=== PATIENT | female | born 1995 | race Caucasian/White ===

== ENCOUNTER 2021-11-14 22:03 | Emergency (ER) | payer OTHER, SELFPAY ==
[2021-11-14 22:04] VITALS: BP 130/84; PULSE 81; RESP 16; TEMP 36.9; O2SAT 100; BMI 30.4
--- NOTE | 2021-11-14 22:07 | ECG_ITS ---
APPROVED REPORT Exam: Resting ECG HR:84 bpm ECG Measurements Heart Rate 84 AXES KS 241 P 76 QRSd 120 QRS 112 QT 359 T 76 QTc 401 Conclusion SINUS RHYTHM WITH FIRST DEGREE AV BLOCK RIGHT AXIS DEVIATION [QRS AXIS > 100] RIGHT BUNDLE BRANCH BLOCK [120+ ms QRS DURATION, UPRIGHT V1, 40+ ms S IN I/aVL/V4/V5/V6] SEPTAL MYOCARDIAL INFARCTION , OF INDETERMINATE AGE [40+ ms Q WAVE IN V1/V2] ABNORMAL ECG UNCONFIRMED REPORT Electronically signed by : Tiago Boyd MD 11/16/2021 21:11:06
--- NOTE | 2021-11-14 22:41 | XR_ITS ---
PROCEDURE INFORMATION: Exam: XR Chest Exam date and time: 11/14/2021 11:23 PM Age: 26 years old Clinical indication: Other: Seizure TECHNIQUE: Imaging protocol: Radiologic exam of the chest. Views: 2 views. COMPARISON: No relevant prior studies available. FINDINGS: Lungs: Unremarkable. No consolidation. Pleural spaces: Unremarkable. No pleural effusion. No pneumothorax. Heart/Mediastinum: Unremarkable. No cardiomegaly. Bones/joints: Unremarkable. IMPRESSION: No acute cardiopulmonary abnormality.
--- NOTE | 2021-11-14 22:41 | CT_ITS ---
PROCEDURE INFORMATION: Exam: CT Head Without Contrast Exam date and time: 11/14/2021 11:30 PM Age: 26 years old Clinical indication: Injury or trauma; Fall; Additional info: Poss seizure possible fall TECHNIQUE: Imaging protocol: Computed tomography of the head without contrast. Radiation optimization: All CT scans at this facility use at least one of these dose optimization techniques: automated exposure control; mA and/or kV adjustment per patient size (includes targeted exams where dose is matched to clinical indication); or iterative reconstruction. COMPARISON: No relevant prior studies available. FINDINGS: Brain: Normal. No hemorrhage. Unremarkable white matter. No mass effect. Cerebral ventricles: No ventriculomegaly. Paranasal sinuses: Mild mucosal thickening in the paranasal sinuses. Mastoid air cells: Visualized mastoid air cells are well aerated. Bones/joints: Unremarkable. No acute fracture. Soft tissues: Unremarkable. IMPRESSION: No acute intracranial findings.
--- NOTE | 2021-11-14 22:41 | CT_ITS ---
PROCEDURE INFORMATION: Exam: CT Cervical Spine Without Contrast Exam date and time: 11/14/2021 11:33 PM Age: 26 years old Clinical indication: Injury or trauma; Fall; Additional info: Poss seizure possible fall TECHNIQUE: Imaging protocol: Computed tomography of the cervical spine without contrast. Radiation optimization: All CT scans at this facility use at least one of these dose optimization techniques: automated exposure control; mA and/or kV adjustment per patient size (includes targeted exams where dose is matched to clinical indication); or iterative reconstruction. COMPARISON: CT HEAD/BRAIN WO CON 11/14/2021 11:30 PM FINDINGS: Bones/joints: Straightening and kyphosis of the curvature of the cervical spine is likely positional. Discs/Spinal canal/Neural foramina: No significant disc protrusion. No severe spinal canal stenosis. No significant neural foraminal narrowing. Lungs: Lung apices are normal. Thyroid: There is a 2.3 cm right thyroid nodule. Soft tissues: Unremarkable. IMPRESSION: 1. No acute fracture or malalignment of the cervical spine. 2. There is a 2.3 cm right thyroid nodule. If not previously performed, follow-up ultrasound is recommended. COMMENTS: Consistent with the [employer]'s Incidental Findings Committee white paper (J Am Sandra Radiol 2015): In patients under 35 years old with an incidental thyroid nodule equal to or greater than [address], MRI or extrathyroidal US, further evaluation with dedicated thyroid US is recommended for patients with normal life expectancy and without comorbidities. For smaller nodules without suspicious features, no further evaluation or follow up is recommended.
[2021-11-14 22:48] LABS: Microscopic, Urine URINE MICROSCOPIC (MICROSCOPIC)
[2021-11-14 22:50] LABS: Appearance,Urine SL CLOUDY (Clear); Bilirubin,Urine Negative (Negative); Blood, Urine Negative (Negative); Color,Urine YELLOW (Yellow); Glucose,Urine (UA) Negative (Negative); Ketones,Urine Negative (Negative); Leukocyte Esterase,Urine 1+ (Negative); Nitrate,Urine Negative (Negative); Protein,Urine Negative (Negative); Specific Gravity, Urine >= 1.030 (1.005-1.030); Urobilinogen,Urine 0.2 EU/dl (0.2)
[2021-11-14 22:54] LABS: Urine Pregnancy, HCG Qual. Negative (Negative)
[2021-11-14 22:56] LABS: Alanine Aminotransferase 18 U/L (12-78); Albumin Level 4.5 g/dl (3.5-5.0); Albumin/Globulin Ratio 1.3 (1.1-1.8); Alkaline Phosphatase 82 U/L (38-126); Anion Gap 12.4 mEq/L (5-15); Aspartate Amino Transferase 31 U/L (14-36); Bilirubin,Total 0.5 mg/dl (0.2-1.3); Blood Urea Nitrogen 8 mg/dl (7-17); Calcium 9.5 mg/dl (8.4-10.2); Carbon Dioxide 23 mmol/L (22.0-30.0); Chloride 108 mmol/L (98-107); Creatinine Clearance Estimated 151 mL/min (50-200); Estimated Glomerular Filt Rate 88 ml/min (>60); GFR (African American) 107 ML/MIN (>60); Globulin 3.4 g/dL (1.3-3.2); Glucose 108 mg/dl (74-100); Potassium 3.4 mmoL/L (3.5-5.1); Sodium 140 mmol/L (136-145); Total Protein,Serum 7.9 g/dl (6.3-8.2)
[2021-11-14 22:56] LABS: Bacteria,Urine 2+ /lpf
[2021-11-14 23:00] LABS: Basophils # 0.1 K/mm3 (0-0.2); Basophils % 0.7 % (0.1-2.0); Eosinophils # 0.4 K/mm3 (0.0-0.4); Eosinophils % 4.3 % (0.1-12.0); Hematocrit 42.6 % (37.0-47.0); Lymphocytes # 3.4 K/mm3 (0.7-4.5); Mean Corpuscular HGB Conc 35.2 g/dL (31.8-35.4); Mean Corpuscular Hemoglobin 30.3 pg (27.0-31.2); Monocytes # 0.4 K/mm3 (0.1-1.0); Monocytes % 4.6 % (1.7-9.3); Neutrophils # 5.3 K/mm3 (1.8-7.8); Neutrophils % 55.4 % (37.0-80.0); Platelet Count 236 K/mm3 (142-424); Red Blood Count 4.95 M/mm3 (4.20-5.40); Red Cell Distribution Width 12.6 % (11.5-17.5); White Blood Count 9.6 K/mm3 (4.8-10.8)
[2021-11-14 23:01] LABS: C-Reactive Protein 2.1 mg/L (0-4)
[2021-11-14 23:20] LABS: Procalcitonin < 0.030 ng/mL (0.0-2.0)
[2021-11-14 23:27] LABS: Erythrocyte Sedimentation Rate 14 mm/hr (0-20)
--- NOTE | 2021-11-15 01:40 | HMH.EDSEIZ ---
ED Disposition Clinical Impression: Generalized seizure Disposition: Home, Self-Care Condition on Discharge: Good Instructions: DI for Seizure Disorder -- Adult Additional Instructions: use meds and see pcp for follow up and dr castillo Prescriptions: levETIRAcetam [Keppra 500mg tablet] 500 mg PO BID #60 tab Transmission Status: Pending to [facility] Referrals: Provider,MD Ronel [Primary Care Provider] - Elsie Castillo MD [Staff Physician] - - Critical Care Critical Care Time: No Attestation: On 11/14/21, the high probability of a clinically significant, sudden or life threatening deterioration of the following system(s) required my full and direct attention, intervention and personal management. The time I documented below is in addition to time spent performing reported procedures but includes the following listed in this critical care notation. Medical Decision Making - Medical Records Medical records reviewed: Yes: I reviewed the patient's medical records. - Tarun Inquiry Pt receiving controlled substance: No Vital Signs: 11/14/21 22:04 Temperature 98.5 F Temperature Source Oral Pulse Rate [Left] 81 Respiratory Rate 16 Blood Pressure [Right Arm] 130/84 Blood Pressure Mean [Right Arm] 99 02 Sat by Pulse Oximetry 100 Oxygen Delivery Method Room Air - Lab Data Lab results reviewed: Yes: I reviewed the patient's lab results. Lab Results 11/14/21 22:17: WBC 9.6, RBC 4.95, Hgb 15.0, Hct 42.6, MCV 86.0, MCH 30.3, MCHC 35.2, RDW 12.6, Plt Count 236, MPV 10.0, Neut % (Auto) 55.4, Lymph % (Auto) 35.0, [place] % (Auto) 4.6, Eos % (Auto) 4.3, Baso % (Auto) 0.7, Neut # (Auto) 5.3, Lymph # (Auto) 3.4, [place] # (Auto) 0.4, Eos # (Auto) 0.4, Baso # (Auto) 0.1, ESR 14 11/14/21 22:17: Sodium 140, Potassium 3.4 L, Chloride 108 H, Carbon Dioxide 23, Anion Gap 12.4, BUN 8, Creatinine 0.80, Estimated Creat Clear 151, Estimated GFR 88, Est GFR ( Amer) 107, Glucose 108 H, Calcium 9.5, Total Bilirubin 0.5, AST 31, ALT 18, Alkaline Phosphatase 82, C-Reactive Protein 2.1, Total Protein 7.9, Albumin 4.5, Globulin 3.4 H, Albumin/Globulin Ratio 1.3, Procalcitonin < 0.030 11/14/21 22:22: Urine Color Yellow, Urine Appearance Sl cloudy, Urine pH 6.0, Ur Specific [place] >= 1.030, Urine Protein Negative, Urine Glucose (UA) Negative, Urine Ketones Negative, Urine Blood Negative, Urine Nitrate Negative, Urine Bilirubin Negative, Urine Urobilinogen 0.2, Ur Leukocyte Esterase 1+ A, Urine RBC None, Urine WBC 5-10, Ur Squamous Epith Cells 5-10, Urine Bacteria 2+ 11/14/21 22:22: Urine HCG, Qual Negative Result diagrams: 11/14/21 22:17 11/14/21 22:17 Orders (Tests/Meds): ED MEDICATIONS Generic Name Dose Route Start Last Admin Trade Name Freq PRN Reason Stop Dose Admin Sodium Chloride 1,000 mls @ 999 mls/hr 11/14/21 22:45 11/14/21 22:47 Sod Chlor 0.9% 1000ml Bag IV 11/14/21 23:45 999 mls/hr .Q1H1M CARA Administration Sodium Chloride 10 ml 11/14/21 22:41 Sodium Chloride 0.9% 10ml Vial IV 12/14/21 22:40 NEEDED PRN to Dilute Lorazepam inj Discontinued Medications Generic Name Dose Route Start Last Admin Trade Name Freq PRN Reason Stop Dose Admin Lorazepam 1 mg 11/14/21 22:41 11/14/21 22:47 Lorazepam 2mg/Ml Vial IV 11/14/21 22:42 1 mg ONCE ONE Administration ORDERS Category Date Time Status Rapid PCR Covid and Flu A/B Stat Lab 11/14/21 22:40 Ordered Urine Culture Stat Micro 11/14/21 22:22 Received - Radiology Data #1 Image(s): Chest Image Reviewed: Yes I have reviewed radiologist's interpretation Preliminary Findings: Normal/NAD - CT Data CT Scan: Head, C-Spine Time Received: 01:[address] Reviewed: Yes: I have viewed the radiologist's interpretation Preliminary Findings: Normal/NAD - Reevaluation(s) Time: 01:52 Reevaluation #1: stable Medical Decision Narrative: possible sz and will refer to pcp and neuro and start keppra Seizures HP
[2021-11-15 01:54] VITALS: BP 110/70; PULSE 78; RESP 18; TEMP 36.7; O2SAT 97
[2021-11-15 02:12] LABS: Amphetamine/Metha Screen,Urine Negative ng/ml (<1000); Barbiturates Screen,Urine Negative ng/ml (<200)
[2021-11-15 02:13] LABS: Benzodiazepines Screen,Urine Negative ng/ml (<200)
[2021-11-15 02:14] LABS: Cannabinoid Screen,Urine Negative ng/ml (<50); Cocaine Screen,Urine Negative ng/ml (<300)
[2021-11-15 02:15] LABS: Methadone Screen,Urine Negative ng/ml (<300)
[2021-11-15 02:16] LABS: Opiate Screen,Urine Negative ng/ml (<300); Phencyclidine Screen,Urine Negative ng/ml (<25)
== END 2021-11-15 02:35 | disposition home or self-care (01) ==
PROVIDERS: Emergency Provider Emergency Medicine
DX: I45.10 Unspecified right bundle-branch block (principal); G40.89 Other seizures
CPT/HCPCS: 70450; 71046; 72125; 80053; 80305; 81001; 81025; 84145; 85025; 85651; 86140; 87086; 93005; 96365; 96367; 96375; 99284; J1953

== ENCOUNTER 2022-03-06 18:37 | Emergency (ER) | payer OTHER, SELFPAY ==
[2022-03-06 19:05] VITALS: BP 109/82; PULSE 125; RESP 19; TEMP 37.4; O2SAT 98; BMI 30.7
--- NOTE | 2022-03-06 19:16 | EXP.UTC ---
Discharge Plan Disposition Patient Disposition: Home, Self-Care Condition: Good Prescriptions Prescriptions: New prednisone [prednisone] 20 mg tablet 20 mg PO BID Qty: 10 0RF fluticasone propionate [fluticasone propionate] 50 mcg/actuation spray,suspension 1 spray intranasal DAILY Qty: 9.9 0RF Discontinued pseudoephedrine HCl 120 mg tablet extended release 120 mg PO Q12H PRN (Reason: nasal congestion) Qty: 10 0RF No Action Nexplanon 68 mg implant subdermal amoxicillin 875 mg tablet 875 mg PO BID 7 Days Qty: 14 0RF levetiracetam 500 MG tablet 500 mg PO BID Qty: 60 0RF Referrals Follow up/Referrals: Provider,Referral, MD [Primary Care Provider] - See instructions Activity Restrictions/Add. Instructions Additional Instructions/Restrictions: No sign of a bacterial infection. Likely viral. Viruses can take 7-14 days to run their course. Nasal saline and bulb syringe or nose Lolis to remove nasal drainage to help with nasal congestion. Hard to eat, drink, sleep with nasal congestion so important to keep this cleaned out. Monitor temp. Tylenol or Motrin as needed for pain or fever Encourage fluids, water, Gatorade, Powerade, Pedialyte if infant/toddler/child Warm salt water gargles Warm fluids Sore throat lozenges Sleep elevated Humidifier/vaporizer Follow-up immediately for new or worsening symptoms or no noticeable improvement over the next 48-72 hours. Clinical Impressions Clinical Impression: Upper respiratory infection Instructions Patient Instructions: DI for Viral Upper Respiratory Infection -- Adult Discharge ED Provider: Samy ([facility])Tracie [facility] HPI General Stated complaint: weak, chills, ear ache Mode of Arrival: Ambulatory Source of Information: Patient Limitations: No Limitations Time Seen by Provider: 03/06/22 19:16 HEENT Symptoms (Recalled from RN notes): Yes Resp Symptoms (Recalled from RN notes): Yes History of Present Illness Provider Complaint: 26 yr old female presents for clear congestion, ear pain, sore throat and thirsty. pt states she was seen on monday and placed on antibiotics and sudefed and does not feel any better Related Data Home Medications Medication Instructions Recorded Confirmed etonogestrel 68 mg subdermal subdermal 03/01/22 03/01/22 implant (Nexplanon) Previous Rx's Medication Instructions Recorded levetiracetam 500 mg tablet 500 mg PO BID #60 tabs 11/15/21 amoxicillin 875 mg tablet 875 mg PO BID 7 days #14 tabs 03/01/22 fluticasone propionate 50 1 spray intranasal DAILY #9.9 mL 03/06/22 mcg/actuation nasal spray,suspension prednisone 20 mg tablet 20 mg PO BID #10 tabs 03/06/22 Allergies Allergy/AdvReac Type Severity Reaction Status Date / Time No Known Allergies Allergy Verified 03/01/22 13:50 [facility] Medical History (Updated 03/06/22 @ 19:21 by Tracie Pablo ([facility]), DEPUTY CORONER) Seizure Surgical History , DEPUTY CORONER) History of endometrial ablation Family History , DEPUTY CORONER) Diabetes Grandmother Coronary artery disease Father Hypertension Father Social History , DEPUTY CORONER) Smoking Status: Current every day smoker alcohol intake: never substance use type: denies use current occupational status: unemployed Travel in the last 8 weeks: None household members: children housing: apartment ROS Obtained: Yes All systems reviewed & no additional complaints except as documented Constitutional Constitutional: Reports system reviewed and no additional complaints, except as documented, Reports as per HPI, Reports body ache and Reports fever(s) Eyes Eyes: Reports system reviewed and no additional complaints, except as documented and Reports as per HPI ENT Ears, Nose, Mouth, and Throat: Reports system reviewed and no additional complaints, e
[2022-03-06 19:51] VITALS: BP 109/82; PULSE 125; RESP 19; TEMP 37.4; O2SAT 98
== END 2022-03-06 19:54 | disposition home or self-care (01) ==
PROVIDERS: Emergency Provider Nurse Practitioner Family
DX: J06.9 Acute upper respiratory infection, unspecified (principal)
CPT/HCPCS: 99212; G0463

== ENCOUNTER 2022-08-16 19:16 | Emergency (ER) | payer OTHER, SELFPAY ==
[2022-08-16] VITALS (7 sets, daily range): BP systolic 96–140; BP diastolic 49–84; PULSE 66–98; RESP 12–21; TEMP 36.8–37.1; O2SAT 99–100; BMI 34.4
--- NOTE | 2022-08-16 19:18 | ECG_ITS ---
APPROVED REPORT Exam: Resting ECG HR:78 bpm ECG Measurements Heart Rate 78 AXES SC 193 P -55 QRSd 118 QRS 104 QT 363 T 62 QTc 397 Conclusion ECTOPIC ATRIAL RHYTHM RIGHT AXIS DEVIATION [QRS AXIS > 100] INCOMPLETE RIGHT BUNDLE BRANCH BLOCK [90+ ms QRS DURATION, TERMINAL R IN V1/V2, 40+ ms S IN I/aVL/V4/V5/V6] SEPTAL MYOCARDIAL INFARCTION , OF INDETERMINATE AGE [40+ ms Q WAVE IN V1/V2] ABNORMAL ECG UNCONFIRMED REPORT Electronically signed by : Tiago Boyd MD 08/17/2022 20:29:25
--- NOTE | 2022-08-16 19:25 | CT_ITS ---
PROCEDURE INFORMATION: Exam: CT Head Without Contrast Exam date and time: 08/16/2022 8:56 PM Age: 26 years old Clinical indication: Syncope and collapse TECHNIQUE: Imaging protocol: Computed tomography of the head without contrast. Radiation optimization: All CT scans at this facility use at least one of these dose optimization techniques: automated exposure control; mA and/or kV adjustment per patient size (includes targeted exams where dose is matched to clinical indication); or iterative reconstruction. REPORTING DATA: Count of CT and Cardiac NM exams in prior 12 months: This patient has received 2 known CTs and 0 known cardiac nuclear medicine studies in the 12 months prior to the current study. COMPARISON: CT HEAD/BRAIN WO CON 11/14/2021 11:30 PM FINDINGS: Brain: No evidence for acute transcortical infarct. No mass effect or midline shift. No extra-axial collection. No acute intracranial hemorrhage. Basal cisterns are patent. Cerebral ventricles: No ventriculomegaly. Paranasal sinuses: Visualized sinuses are unremarkable. No fluid levels. Mastoid air cells: Visualized mastoid air cells are well aerated. Bones/joints: Unremarkable. No acute fracture. Soft tissues: Unremarkable. IMPRESSION: No evidence for acute transcortical infarct, acute intracranial hemorrhage, or mass effect.
--- NOTE | 2022-08-16 19:25 | XR_ITS ---
PROCEDURE INFORMATION: Exam: XR Chest Exam date and time: 08/16/2022 8:50 PM Age: 26 years old Clinical indication: Syncope TECHNIQUE: Imaging protocol: Radiologic exam of the chest. Views: 2 views. COMPARISON: CR XR CHEST 2V 11/14/2021 11:23 PM FINDINGS: Lungs: Clear lungs. Pleural spaces: No pneumothorax. No sizable pleural effusion. Heart/Mediastinum: No cardiomegaly. Bones/joints: Unremarkable. IMPRESSION: Clear lungs.
[2022-08-16 19:42] LABS: Basophils # 0.1 K/mm3 (0-0.2); Basophils % 0.9 % (0.1-2.0); Eosinophils # 0.5 K/mm3 (0.0-0.4); Eosinophils % 5.2 % (0.1-12.0); Hematocrit 45.2 % (37.0-47.0); Hemoglobin 15.2 g/dL (12.2-16.2); Lymphocytes # 3.7 K/mm3 (0.7-4.5); Lymphocytes % 39.7 % (10-50); Mean Corpuscular HGB Conc 33.7 g/dL (31.8-35.4); Mean Corpuscular Hemoglobin 30.4 pg (27.0-31.2); Mean Platelet Volume 9.6 fl (7.4-10.4); Monocytes # 0.5 K/mm3 (0.1-1.0); Monocytes % 5.7 % (1.7-9.3); Neutrophils # 4.5 K/mm3 (1.8-7.8); Neutrophils % 48.4 % (37.0-80.0); Platelet Count 258 K/mm3 (142-424); Red Blood Count 5.02 M/mm3 (4.20-5.40); Red Cell Distribution Width 13.3 % (11.5-17.5); White Blood Count 9.4 K/mm3 (4.8-10.8)
[2022-08-16 19:43] LABS: Chloride 106 mmol/L (98-107); Potassium 3.8 mmoL/L (3.5-5.1); Sodium 140 mmol/L (136-145)
[2022-08-16 19:46] LABS: Alanine Aminotransferase 24 U/L (12-78); Albumin Level 4.7 g/dl (3.5-5.0); Albumin/Globulin Ratio 1.2 (1.1-1.8); Alkaline Phosphatase 74 U/L (38-126); Amylase 108 U/L (30-110); Anion Gap 13.8 mEq/L (5-15); Aspartate Amino Transferase 31 U/L (14-36); Bilirubin,Total 0.5 mg/dl (0.2-1.3); Blood Urea Nitrogen 14 mg/dl (7-17); Calcium 9.4 mg/dl (8.4-10.2); Carbon Dioxide 24 mmol/L (22.0-30.0); Creatinine Clearance Estimated 152 mL/min (50-200); Estimated Glomerular Filt Rate 77 ml/min (>60); GFR (African American) 93 ML/MIN (>60); Globulin 3.8 g/dL (1.3-3.2); Glucose 97 mg/dl (74-100); Lipase 112 U/L (23-300); Total Protein,Serum 8.5 g/dl (6.3-8.2)
[2022-08-16 20:10] LABS: T4 (Thyroxine) 8.5 ug/dl (5.53-11.0)
[2022-08-16 20:12] LABS: Troponin I < 0.01 ng/ml (0.00-0.034)
[2022-08-16 20:23] LABS: Thyroid Stimulating Hormone 0.25 uIU/mL (0.465-4.68)
[2022-08-16 20:27] LABS: HCG Qualitative, Serum Negative (Negative)
--- NOTE | 2022-08-16 20:53 | HMH.EDSYNC ---
Discharge Plan Disposition Patient Disposition: Home, Self-Care Chief Complaint: Syncope Prescriptions Prescriptions: No Action Nexplanon 68 mg implant 1 implant subdermal ONCE levetiracetam 500 MG tablet 500 mg PO BID Rx Instructions: takes prn when she feels a headache coming on Referrals Follow up/Referrals: Provider,Referral, MD [Primary Care Provider] - See instructions Clinical Impressions Clinical Impression: Vasovagal syncope, Gastroenteritis Instructions Patient Instructions: DI for Syncope in Adults (Fainting) Discharge ED Provider: Isra (ED),Rolando Antoine Syncope HPI General Chief Complaint: Syncope Stated Complaint: syncopal Time Seen by Provider: 08/16/22 20:53 Mode of Arrival: EMS Source of Information: Patient, EMS and Medical Record Limitations: No Limitations Description of Symptoms (Recalled from ER Triage Doc. by RN): 26 F presents via EMS from work c/o nausea, vomiting, diarrhea, and syncope. Patient reports she was not feeling well before she went to work; however, it became worse when she felt light headed and almost passed out. Patient has 20g to LAC per EMS History of Present Illness HPI narrative: pt with reported vomiting and diarrhea which started today - pt reports child has similiar illness- no fever - went to work and became lightheaded and had near syncopal episode - no sz activity reported MD complaint: almost passed out Onset (ago): hour(s) Prodromal symptoms: lightheaded Witnessed: no Context: recent illness Injuries sustained associated with event: none Current symptoms: back to baseline History: seizure disorder Treatments prior to arrival: none Related Data Home Medications Medication Instructions Recorded Confirmed etonogestrel 68 mg subdermal 1 implant subdermal ONCE nexplanon 03/01/22 08/16/22 implant (Nexplanon) levetiracetam 500 mg tablet 500 mg PO BID Headache 08/16/22 08/16/22 Allergies Allergy/AdvReac Type Severity Reaction Status Date / Time No Known Allergies Allergy Verified 03/01/22 13:50 [facility] Disclaimer: The information contained in this section may have been updated after the patient was seen, as this information can be updated by other users. Medical History (Updated 08/16/22 @ 21:36 by Rolando Dhaliwal (ED)MD) Seizure Surgical History History of endometrial ablation Family History , [employer]) Diabetes Grandmother Coronary artery disease Father Hypertension Father Social History (Updated 03/06/22 @ 19:22 by Pam Morrissey RN) Smoking Status: Current every day smoker alcohol intake: never substance use type: denies use current occupational status: unemployed Travel in the last 8 weeks: None household members: children housing: apartment ROS Obtained: Yes All systems reviewed & no additional complaints except as documented Physical Exam General General appearance: alert Head Head exam: normocephalic Eye Eye exam: Present PERRL and EOMI; Absent scleral icterus or nystagmus ENT ENT exam: Present mucous membranes moist and other (no evid of tongue biting ) Neck Neck exam: Present full ROM Respiratory Respiratory exam: Present normal lung sounds bilaterally; Absent respiratory distress Cardiovascular Cardiovascular exam: Present regular rate Abdominal Exam Abdominal exam: Present soft; Absent tenderness Extremities Exam Extremities exam: Present full ROM Neurological Exam Neurological exam: Present alert, oriented X3 and CN II-XII intact; Absent motor sensory deficit Psychiatric Psychiatric exam: Present normal affect Skin Skin exam: Absent rash Medical Decision Making Medical Records Medical records reviewed: Yes I reviewed the patient's medical records. Tarun Inquiry Pt receiving controlled substance: No Vital Signs: 08/16/22 19:16 08/16/22 1
== END 2022-08-16 21:54 | disposition home or self-care (01) ==
PROVIDERS: Emergency Provider Emergency Medicine
DX: R55 Syncope and collapse (principal); K52.9 Noninfective gastroenteritis and colitis, unspecified; F17.200 Nicotine dependence, unspecified, uncomplicated
CPT/HCPCS: 70450; 71046; 80053; 82150; 83690; 84436; 84443; 84484; 84703; 85025; 93005; 96361; 96374; 99285; J2405

== ENCOUNTER → 2022-09-14 10:45 | Outpatient (CLI) | payer OTHER, SELFPAY ==
[2022-09-14 13:24] LABS: Basophils % 0.6 % (0.1-2.0); Eosinophils # 0.5 K/mm3 (0.0-0.4); Hematocrit 43.6 % (37.0-47.0); Hemoglobin 14.5 g/dL (12.2-16.2); Lymphocytes # 2.8 K/mm3 (0.7-4.5); Lymphocytes % 38.7 % (10-50); Mean Corpuscular HGB Conc 33.1 g/dL (31.8-35.4); Mean Corpuscular Volume 90.5 fl (81-99); Monocytes # 0.3 K/mm3 (0.1-1.0); Monocytes % 4.3 % (1.7-9.3); Neutrophils # 3.6 K/mm3 (1.8-7.8); Neutrophils % 49.5 % (37.0-80.0); Platelet Count 223 K/mm3 (142-424); Red Blood Count 4.82 M/mm3 (4.20-5.40); White Blood Count 7.2 K/mm3 (4.8-10.8)
[2022-09-14 13:46] LABS: Alanine Aminotransferase 34 U/L (12-78); Albumin Level 4.2 g/dl (3.5-5.0); Albumin/Globulin Ratio 1.4 (1.1-1.8); Alkaline Phosphatase 79 U/L (38-126); Anion Gap 17.8 mEq/L (5-15); Aspartate Amino Transferase 37 U/L (14-36); Bilirubin,Total 0.6 mg/dl (0.2-1.3); Blood Urea Nitrogen 11 mg/dl (7-17); Calcium 9.2 mg/dl (8.4-10.2); Carbon Dioxide 23 mmol/L (22.0-30.0); Chloride 103 mmol/L (98-107); Estimated Glomerular Filt Rate 122 ml/min (>60); GFR (African American) 147 ML/MIN (>60); Glucose 93 mg/dl (74-100); Potassium 3.8 mmoL/L (3.5-5.1); Sodium 140 mmol/L (136-145); Total Protein,Serum 7.2 g/dl (6.3-8.2)
[2022-09-14 14:01] LABS: Triiodothryronine (T3) Uptake 33 % (23.5-40.5)
[2022-09-14 14:16] LABS: Thyroid Stimulating Hormone 0.19 uIU/mL (0.465-4.68)
[2022-09-14 19:15] LABS: Free Thyroxine Index 2.1 ug/dL (5.93-13.13); T4 (Thyroxine) 6.5 ug/dl (5.53-11.0)
== END ==
PROVIDERS: PCP Nurse Practitioner Family; Visit Provider Nurse Practitioner Family
DX: R53.83 Other fatigue (principal)
CPT/HCPCS: 80053; 83036; 84436; 84443; 84479; 85025

== ENCOUNTER → 2022-09-22 15:27 | Outpatient (CLI) | payer OTHER, SELFPAY ==
--- NOTE | 2022-09-22 15:30 | XR_ITS ---
FINAL REPORT CLINICAL HISTORY: Foot Pain COMPARISON: None FINDINGS: LEFT FOOT Three views of the left foot demonstrate no acute fracture or dislocation. The visualized joint spaces are normally aligned. The soft tissues are unremarkable. IMPRESSION: No acute bony abnormality. Reviewed, Interpreted and Dictated by Bryson Hermosillo MD Transcribed by Sonali Ly Authenticated and [facility]
== END ==
PROVIDERS: PCP Nurse Practitioner Family; Visit Provider Nurse Practitioner Family
DX: M79.672 Pain in left foot (principal)
CPT/HCPCS: 73630

== ENCOUNTER → 2022-09-27 09:24 | Outpatient (CLI) | payer OTHER, SELFPAY ==
[2022-09-27 10:41] LABS: Free T4 (Free Thyroxine) 0.91 ng/dl (0.78-2.19)
[2022-09-28 17:41] LABS: Thyroid Peroxidase Antibodies <9 IU/mL (0-34)
[2022-09-30 07:39] LABS: Thyroid Stimulating Immunoglob <0.10 IU/L (0.00-0.55)
== END ==
PROVIDERS: PCP Nurse Practitioner Family; Visit Provider Nurse Practitioner
DX: E05.90 Thyrotoxicosis, unspecified without thyrotoxic crisis or storm (principal)
CPT/HCPCS: 36415; 84439; 84443; 84445; 86376

== ENCOUNTER → 2022-10-12 10:24 | Outpatient (CLI) | payer OTHER, SELFPAY ==
--- NOTE | 2022-10-12 10:27 | US_ITS ---
FINAL REPORT CLINICAL HISTORY: hyperthyroidism FINDINGS: Thyroid ultrasound: The right lobe of the thyroid measures 6 x 1.6 x 2.6 cm in size. There is a dominant nodule, hypoechoic, and solid, in the lower pole of the right lobe of the thyroid gland measuring 1.9 x 1.8 cm in size. This lesion is classified as a TI-RADS 4 class lesion. Several other subcentimeter nodules are present. The left lobe of the thyroid gland measures 5.7 x 1.3 x 1.8 cm in size. There are several small subcentimeter nodules present, hypoechoic and solid. The isthmus of the thyroid gland measures 0.3 cm in thickness. There is a 1.2 cm ovoid nodule in the right side of the isthmus, which is a TI-RADS 4 category nodule. IMPRESSION: Dominant right lower pole nodule, 1.9 x 1.8 cm in size, classified as a TI-RADS 4 category nodule. Would recommend biopsy of this nodule. 1.2 cm ovoid nodule in the right isthmus, also classified as a TI-RADS 4 nodule. Would recommend 1 year follow-up ultrasound for further evaluation. Several other small bilateral nodules, all less than a cm in size are present bilaterally. Mild thyromegaly. Reviewed, Interpreted and Dictated by Bryson Hermosillo MD Transcribed by Sonali Ly Authenticated and [facility]
== END ==
PROVIDERS: PCP Nurse Practitioner Family; Visit Provider Nurse Practitioner
DX: E05.90 Thyrotoxicosis, unspecified without thyrotoxic crisis or storm (principal)
CPT/HCPCS: 76536

== ENCOUNTER → 2022-10-19 09:05 | Outpatient (CLI) | payer OTHER, SELFPAY ==
--- NOTE | 2022-10-19 09:09 | US_ITS ---
FINAL REPORT CLINICAL HISTORY: right lobe thyroid FNA FINDINGS: Ultrasound guided thyroid biopsy. HISTORY: Thyroid mass. PROCEDURE: After informed consent was obtained and a time-out was performed, the patient was prepped and draped in usual sterile fashion over the anterior neck. Utilizing local anesthesia and sterile technique with a 25-gauge needle, access to the lesion was obtained. Four passes were made. The patient received no conscious sedation. The patient tolerated procedure well and left the department in good condition. IMPRESSION: Status post ultrasound guided biopsy of a thyroid nodule without immediate complication. Films reviewed , interpreted and dictated by Dr. Carlson Transcribed by Jm Elizalde PA-C. Reviewed, Interpreted and Dictated by Chu Carlson III, MD Transcribed by RUBY Tafoya Authenticated and [facility]
== END ==
PROVIDERS: PCP Physician Assistant; Visit Provider Nurse Practitioner
DX: E04.1 Nontoxic single thyroid nodule (principal)
CPT/HCPCS: 10005; 76536

== ENCOUNTER 2022-11-04 08:28 | Emergency (ER) | payer OTHER, SELFPAY ==
[2022-11-04 08:29] VITALS: BP 126/72; RESP 17; TEMP 37.1; O2SAT 98; BMI 33.8
--- NOTE | 2022-11-04 08:48 | PC.NURSE ---
Dr. Ryan at [facility]
--- NOTE | 2022-11-04 08:51 | XR_ITS ---
FINAL REPORT CLINICAL HISTORY: toe injury, dropped drawer on toes, c/o pain with bruising and laceration to 1st and 2nd toes FINDINGS: Right toes Four views were obtained. There is no acute fracture or dislocation. The joint spaces appear normal. No soft tissue abnormality is identified. IMPRESSION: No acute process. Reviewed, Interpreted and Dictated by Chu Carlson III, MD Transcribed by Palak Boswell Authenticated and [facility]
[2022-11-04 09:06] VITALS: BP 121/62; PULSE 77; O2SAT 97
--- NOTE | 2022-11-04 09:52 | HMH.EDGENADL ---
Discharge Plan Disposition Patient Disposition: Home, Self-Care Chief Complaint: Extremity Injury, Lower Prescriptions Prescriptions: No Action meloxicam 7.5 mg tablet 7.5 mg PO DAILY 30 Days Qty: 30 2RF Nexplanon 68 mg implant 1 implant subdermal ONCE phentermine [Adipex-P] 37.5 mg tablet 37.5 mg PO DAILY Qty: 30 0RF Rx Instructions: must administer 30 minutes before or 1-2 hours after breakfast levetiracetam 500 mg tablet 500 mg PO .PRN Rx Instructions: takes prn when she feels a headache coming on Referrals Follow up/Referrals: Destinee Diaz PA [Primary Care Provider] - See instructions Activity Restrictions/Add. Instructions Additional Instructions/Restrictions: Follow-up with your primary care physician within the next few days. Return the emergency department within the next 8 hours should you have worsening pain rebleeding or any other concerns Clinical Impressions Clinical Impression: Injury of toe Discharge ED Provider: Jose Juan Ryan General Adult HPI General Chief complaint: Extremity Injury, Lower Stated complaint: AO@Home 11/04 RT toe pain lac Time Seen by Provider: 11/04/22 08:30 Mode of Arrival: Ambulatory Source of Information: Patient Limitations: No Limitations Description of Symptoms (Recalled from ER Triage Doc. by RN): pt to the ED after dropping a dresser drawer on her right foot this morning. pt has small laceration to right big toe and a crush injury to second toe. History of Present Illness HPI narrative: 27-year-old female presents after dropping a dresser drawer on her right foot this morning. She has a small laceration to her great toe and second toe. No active bleeding. Tetanus is not up-to-date within the last 10 years. She is able to bear weight no midfoot tenderness. No other injuries no head injury or any other concerns Related Data Home Medications Medication Instructions Recorded Confirmed etonogestrel 68 mg subdermal 1 implant subdermal ONCE nexplanon 03/01/22 10/27/22 implant (Nexplanon) levetiracetam 500 mg tablet 500 mg PO .PRN Headache 10/27/22 10/27/22 Previous Rx's Medication Instructions Recorded meloxicam 7.5 mg tablet 7.5 mg PO DAILY left foot pain 30 09/22/22 days #30 tabs phentermine 37.5 mg tablet 37.5 mg PO DAILY #30 tabs 10/14/22 (Adipex-P) Allergies Allergy/AdvReac Type Severity Reaction Status Date / Time No Known Allergies Allergy Verified 10/27/22 09:54 [facility] Disclaimer: The information contained in this section may have been updated after the patient was seen, as this information can be updated by other users. Medical History (Updated 11/04/22 @ 09:56 by Jose Juan Ryan MD) Deviated septum Hyperthyroidism Seizure Thyroid Nodule Surgical History History of endometrial ablation Family History Grandmother Diabetes Father Coronary artery disease Hypertension Other Thyroid disorder Social History Smoking Status: Never smoker alcohol intake: never substance use type: denies use current occupational status: employed Travel in the last 8 weeks: None household members: children housing: apartment ROS Obtained: Yes All systems reviewed & no additional complaints except as documented Constitutional Constitutional: Denies fever(s) and Denies headache(s) Eyes Eyes: Denies dry eyes ENT Ears, Nose, Mouth, and Throat: Denies headache(s) Cardiovascular Cardiovascular: Denies diaphoresis and Denies dyspnea Respiratory Respiratory: Denies dyspnea and Denies wheezing Gastrointestinal Gastrointestingal: Denies coffee ground emesis Genitourinary Female Genitourinary: Denies dysuria Musculoskeletal Musculoskeletal: Denies arthralgias Integumentary/Breasts Skin/Breast: Denies rash Neurologi
[2022-11-04 10:22] VITALS: BP 129/87; PULSE 74; RESP 16; TEMP 36.7; O2SAT 98
== END 2022-11-04 10:25 | disposition home or self-care (01) ==
PROVIDERS: Emergency Provider Emergency Medicine; PCP Physician Assistant
DX: S91.111A Laceration without foreign body of right great toe without damage to nail, initial encounter (principal); S97.121A Crushing injury of right lesser toe(s), initial encounter; E05.90 Thyrotoxicosis, unspecified without thyrotoxic crisis or storm; W20.8XXA Other cause of strike by thrown, projected or falling object, initial encounter; Z23 Encounter for immunization
CPT/HCPCS: 12001; 73660; 90715; 96372; 99283; 99284

== ENCOUNTER 2023-04-28 13:03 | Outpatient (CLI) | payer OTHER, SELFPAY ==
--- NOTE | 2023-04-28 13:03 | US_ITS ---
FINAL REPORT TECHNIQUE: Real-time grayscale and color ultrasound of the thyroid was performed. CLINICAL HISTORY: Thyroid nodules COMPARISON: 10/12/2022 FINDINGS: The thyroid gland measures 55 mm on the right and 57 mm on the left. The isthmus measures 3 mm. Nodules: Right isthmus TR 4 nodule measures 12 x 11 x 5 mm, was 12 x 11 x 5 mm, mostly solid hypoechoic. Right lower pole 22 x 20 x 19 mm, was 19 x 18 x 21 mm, mostly solid hypoechoic punctate echogenic foci TR 5 nodule. Several other less than 1 cm nodules are stable. IMPRESSION: Right lower pole TR 5 nodule. Recommend biopsy if not already performed. Reviewed, Interpreted and Dictated by Chu Carlson III, MD Transcribed by Flaquita Moore Authenticated and [facility]
== END 2023-04-28 23:59 ==
LOC: RAD 13:03
PROVIDERS: PCP Physician Assistant; Visit Provider Nurse Practitioner
DX: E04.1 Nontoxic single thyroid nodule (principal)
CPT/HCPCS: 76536

== ENCOUNTER 2023-05-12 08:17 | Outpatient (CLI) | payer OTHER, SELFPAY ==
--- NOTE | 2023-05-12 08:20 | US_ITS ---
FINAL REPORT CLINICAL HISTORY: .fna rt throid-- thyroseq used-- antoine olson FINDINGS: Ultrasound guided thyroid biopsy. HISTORY: Thyroid mass. Patient has had previous biopsy which yielded negative results. Review of imaging from that biopsy demonstrated the needle in excellent position within the mass. PROCEDURE: After informed consent was obtained and a time-out was performed, the patient was prepped and draped in usual sterile fashion over the anterior neck. Utilizing local anesthesia and sterile technique with a 25-gauge needle, access to the lesion was obtained. Four passes were made. . Samples were also obtained and sent to the laboratory in [facility]. The patient received no conscious sedation. The patient tolerated procedure well and left the department in good condition. IMPRESSION: Status post ultrasound guided biopsy of a thyroid nodule without immediate complication. Films reviewed , interpreted and dictated by Dr. Carlson Transcribed by Antoine Elizalde PA-C. Reviewed, Interpreted and Dictated by Chu Carlson III, MD Transcribed by RUBY Tafoya Authenticated and [facility]
== END 2023-05-12 23:59 ==
LOC: RAD 08:18
PROVIDERS: PCP Physician Assistant; Visit Provider Nurse Practitioner
DX: E04.1 Nontoxic single thyroid nodule (principal)
CPT/HCPCS: 10005; 76536

== ENCOUNTER 2023-05-15 13:42 | Outpatient (CLI) | payer OTHER, SELFPAY ==
[2023-05-15 21:35] LABS: Free T4 (Free Thyroxine) 0.86 ng/dl (0.78-2.19)
[2023-05-15 21:49] LABS: Thyroid Stimulating Hormone 0.37 uIU/mL (0.465-4.68)
[2023-05-16 09:24] LABS: Triiodothyronine (T3) Free 3.5 pg/mL (2.0-4.4)
== END 2023-05-15 23:59 ==
LOC: LAB 13:43
PROVIDERS: PCP Physician Assistant; Visit Provider Nurse Practitioner
DX: E04.1 Nontoxic single thyroid nodule (principal); E05.90 Thyrotoxicosis, unspecified without thyrotoxic crisis or storm
CPT/HCPCS: 36415; 84439; 84443; 84481

== ENCOUNTER 2023-06-14 13:08 | Outpatient (CLI) | payer OTHER, SELFPAY ==
--- NOTE | 2023-06-14 13:19 | ECG_ITS ---
APPROVED REPORT Exam: Resting ECG HR:82 bpm ECG Measurements Heart Rate 82 AXES GA 198 P -2 QRSd 115 QRS 123 QT 349 T 69 QTc 387 Conclusion SINUS RHYTHM RIGHT AXIS DEVIATION [QRS AXIS > 100] RIGHT BUNDLE BRANCH BLOCK [120+ ms QRS DURATION, UPRIGHT V1, 40+ ms S IN I/aVL/V4/V5/V6] ABNORMAL ECG UNCONFIRMED REPORT Electronically signed by : Tiago Boyd MD 06/14/2023 20:34:43
[2023-06-14 13:53] LABS: Basophils # 0.1 K/mm3 (0-0.2); Basophils % 0.8 % (0.1-2.0); Eosinophils # 0.5 K/mm3 (0.0-0.4); Eosinophils % 6.3 % (0.1-12.0); Hematocrit 41.4 % (37.0-47.0); Hemoglobin 13.5 g/dL (12.2-16.2); Lymphocytes # 2.8 K/mm3 (0.7-4.5); Lymphocytes % 36.1 % (10-50); Mean Corpuscular HGB Conc 32.7 g/dL (31.8-35.4); Mean Corpuscular Hemoglobin 31.7 pg (27.0-31.2); Mean Corpuscular Volume 97.1 fl (81-99); Mean Platelet Volume 9.6 fl (7.4-10.4); Monocytes # 0.4 K/mm3 (0.1-1.0); Monocytes % 4.7 % (1.7-9.3); Neutrophils # 4.1 K/mm3 (1.8-7.8); Neutrophils % 52.1 % (37.0-80.0); Platelet Count 207 K/mm3 (142-424); Red Blood Count 4.26 M/mm3 (4.20-5.40); Red Cell Distribution Width 12.7 % (11.5-17.5); White Blood Count 7.8 K/mm3 (4.8-10.8)
[2023-06-14 14:11] LABS: Alanine Aminotransferase 18 U/L (12-78); Albumin/Globulin Ratio 1.4 (1.1-1.8); Alkaline Phosphatase 69 U/L (38-126); Aspartate Amino Transferase 22 U/L (14-36); Bilirubin,Total 0.4 mg/dl (0.2-1.3); Blood Urea Nitrogen 13 mg/dl (7-17); Calcium 9.2 mg/dl (8.4-10.2); Carbon Dioxide 28 mmol/L (22.0-30.0); Chloride 107 mmol/L (98-107); Estimated Glomerular Filt Rate 76 ml/min (>60); GFR (African American) 92 ML/MIN (>60); Globulin 2.8 g/dL (1.3-3.2); Glucose 87 mg/dl (74-100); Sodium 140 mmol/L (136-145); Total Protein,Serum 6.8 g/dl (6.3-8.2)
[2023-06-14 16:24] LABS: HCG Qualitative, Serum Negative (Negative)
== END 2023-06-14 23:59 ==
LOC: RT 13:09
PROVIDERS: PCP Physician Assistant; Visit Provider Nurse Practitioner
DX: E01.0 Iodine-deficiency related diffuse (endemic) goiter (principal)
CPT/HCPCS: 36415; 80053; 84703; 85025; 93005

== ENCOUNTER 2023-06-21 08:16 | Day surgery (SDC) | payer OTHER, SELFPAY ==
[2023-06-20 12:15] VITALS: BMI 32.4
[2023-06-21] VITALS (11 sets, daily range): BP systolic 104–123; BP diastolic 52–73; PULSE 70–86; RESP 14–16; TEMP 36.3–36.4; O2SAT 96–100
[2023-06-21] MEDS: LACTATED RINGERS 1000ML 1,000 ML 25 ML IV (09:27)
[2023-06-21] MEDS: CEFAZOLIN SODIUM 2 GM in 0.9 % SODIUM CHLORIDE 100 ML IV (10:50)
[2023-06-21] MEDS: LIDOCAINE 1% W/EPI 1:100,000 20ML VIAL 20 ML (10:50)
[2023-06-21] MEDS: BACITRACIN ZINC OINT 30GM TUBE 28 GM TP (12:38)
--- NOTE | 2023-06-21 12:51 | P.OP_ITS ---
Date of procedure: 06/21/23 Pre-op Diagnosis:: Right thyroid nodule Post-op Diagnosis:: Right thyroid nodule Procedure performed:: Right thyroid lobectomy and isthmusectomy with intraoperative continuous monitoring of the recurrent laryngeal nerve Surgeon:: See Armendariz MD SHARED SERVICES AND OUTSOURCING MANAGER:: Nico Patel Anesthesia: GETPatricia Estimated blood loss (mL): 20 Operative findings:: Firm nodule of the inferior pole on the right side. Smaller nodule on the isthmus. Recurrent laryngeal nerve was identified and preserved in its usual location. Superior and inferior parathyroid glands identified and preserved Operative note:: The patient was brought to the operating room and after adequate general anesthesia the neck was prepped and draped in the usual sterile fashion and 1% lidocaine with epinephrine used to locally infiltrate a skin fold overlying the palpable thyroid. Nerve integrity monitoring electrodes were then placed to monitor the recurrent laryngeal nerve. An incision was then made and carried through the underlying platysma and then subplatysmal flaps were elevated superiorly and inferiorly and the strap muscles were divided at midline and retracted laterally and then self-retaining retractor applied. The thyroid isthmus was then elevated from the anterior tracheal wall and then ligated and divided with the harmonic scalpel. The anterior suspensory ligament was isolated ligated and divided again with harmonic scalpel. Attention was then drawn to the right thyroid lobe. Dissection was performed along its capsule. There was some mild inflammation causing adherence of the surrounding soft tissues to the capsule but dissection proceeded without difficulty. The middle thyroid vein was identified ligated and divided with the harmonic scalpel and then attention drawn to the superior pole. The superior pole vascular pedicle was isolated next to the gland capsule ligated and divided with harmonic scalpel and then dissection performed inferiorly. Small vascular perforators at the inferior pole were individually isolated ligated and divided with harmonic scalpel and then dissection performed along the capsule of the thyroid lobe dissecting the thyroid lobe from the tracheoesophageal groove. The recurrent laryngeal nerve was identified in its usual location and identity was confirmed with nerve stimulation. The lateral surface of the nerve was from the thyroid lobe and the inferior and superior parathyroid glands identified and preserved along with the vascular pedicle to each of the parathyroids. The posterior suspensory ligament was then divided and the specimen sent for permanent section analysis. The wound was irrigated with normal saline and final hemostasis established with bipolar cautery. Closure was then performed with 4-0 Vicryl to reapproximate the strap muscles and platysma and then 5-0 nylon to reapproximate the skin edges. A sterile dressing was placed and the procedure concluded. All counts correct and blood loss minimal and patient was sent to recovery in stable condition Condition: stable Disposition: PACU Complications:: No complication
--- NOTE | 2023-06-21 12:52 | EXP.ANES.CKL ---
[facility] Disclaimer: The information contained in this section may have been updated after the patient was seen, as this information can be updated by other users. Medical History (Updated 06/20/23 @ 12:15 by Flaquita Light RN) Deviated septum Epilepsy Hyperthyroidism Seizure Thyroid Nodule Thyromegaly Surgical History History of endometrial ablation Family History Grandmother Diabetes Father Coronary artery disease Hypertension Other Thyroid disorder Social History Smoking Status: Current every day smoker alcohol intake: never substance use type: denies use current occupational status: employed Travel in the last 8 weeks: None household members: children housing: apartment [facility] Anesthesia Checklist Patient Identification Patient Identification: Arm Band Structural Data Admitted From: Home Planned Operative Procedure/s: Right Thyroid Lobectomy Consent for Planned Operative Procedure(s) Verified: Yes Verified Documents: Surgical Consent and History and Physical NPO Status Verified Time NPO: 00:00 Additional verifications Anesthesia Reactions: No Hx Blood Transfusions: No Blood Transfusion Reaction: No Airway Assessment Mallampati Score:: Class II C-Spine Mobility Assessed: Yes TMJ Mobility Assessed: Yes Dentition: Good Dentition Neurological Assessment Level of Consciousness: Awake and Alert Anesthesia Plan Anesthesia Risk discussed: Yes Anesthesia Plan: Verified ASA Class: II Anesthesia Type: General
--- NOTE | 2023-06-21 12:53 | P.PNANES_ITS ---
[facility] Anesthesia Record Part I Anesthesia Record I Intake, IV Amount: 1,400 Hydration: Adequate Estimated blood loss (mL): 10 Urine output (mL): 0 Blood Products used (#): none Blood Pressure: 123/60 SaO2: 100 Pulse Rate: 73 Airway Patency: Patent Respiratory Rate: 16 Temperature: 97.3 F Patient is:: Drowsy and Stable Stable to PACU at:: 12:45
[2023-06-21] MEDS: HYDROMORPHONE 2MG/ML SYRINGE 0.5 MG IV (13:32)
--- NOTE | 2023-06-22 09:40 | EXP.ANES.II ---
[facility] Anesthesia Record Part II Anesthesia Record Part II Discharge Time: 13:39 Destination: Surgical Day Care (OP Surgery) PACU nurse assessment reviewed?: Yes Patient Condition:: Good Anesthesia Complications:: None Swallowing reflex intact?: Yes Airway Patency: Patent Cyanosis?: No Blood Pressure: 104/60 SaO2: 100 Respiratory Rate: 15 Pulse Rate: 77 Temperature: 97.3 F Mental Status: Alert & Oriented Pain level:: 4 Nausea and/or vomitting:: None Intake, IV Amount: 0 Hydration: Adequate
[2023-06-22 09:41] VITALS: BP 104/60; PULSE 77; RESP 15; TEMP 36.3; O2SAT 100
== END 2023-06-21 13:57 | disposition home or self-care (01) ==
PROVIDERS: PCP Physician Assistant; Visit Provider Otolaryngology
PROC: (CPT 60220; principal; 2023-06-21 09:30)
DX: E04.1 Nontoxic single thyroid nodule (principal)
CPT/HCPCS: 60220; 96374; J0330; J2405

== ENCOUNTER 2023-07-04 08:32 | Emergency (ER) | payer OTHER, SELFPAY ==
[2023-07-04 08:40] VITALS: BP 108/68; PULSE 91; RESP 18; TEMP 36.8; O2SAT 99; BMI 32.1
--- NOTE | 2023-07-04 08:49 | ED_ITS ---
Discharge Plan Disposition Patient Disposition: Home, Self-Care Condition: Good Prescriptions Prescriptions: No Action topiramate [Topamax] 25 mg tablet 25 mg PO BID 30 Days Qty: 60 2RF dextroamphetamine-amphetamine [Adderall XR] 20 mg capsule,extended release 24hr 20 mg PO DAILY Qty: 30 0RF Nexplanon 68 mg implant 1 implant subdermal ONCE Referrals Follow up/Referrals: Destinee Diaz PA [Primary Care Provider] - See instructions Activity Restrictions/Add. Instructions Additional Instructions/Restrictions: Go straight to the ENT office to see Sophia Romero APRN as discussed Furhter care and treatment per the ENT office Clinical Impressions Clinical Impression: Sore throat Discharge ED Provider: Beti Castillo [facility] General Stated complaint: sore throat, blisters in mouth Time Seen by Provider: 07/04/23 08:49 History of Present Illness Provider Complaint: Patient states that she started yesterday with sore throat and feeling of dryness in her throat and feels like she may have some blisters back there States she did recently have thyroid surgery but hasnt had any issues from that States hurts when she swallows Related Data Home Medications Medication Instructions Recorded Confirmed etonogestrel 68 mg subdermal 1 implant subdermal ONCE nexplanon 03/01/22 07/04/23 implant (Nexplanon) Previous Rx's Medication Instructions Recorded topiramate 25 mg tablet (Topamax) 25 mg PO BID 30 days #60 tabs 06/19/23 dextroamphetamine-amphetamine ER 20 mg PO DAILY #30 caps 06/21/23 20 mg 24hr capsule,extend release (Adderall XR) Allergies Allergy/AdvReac Type Severity Reaction Status Date / Time No Known Allergies Allergy Verified 07/04/23 08:57 [facility] Disclaimer: The information contained in this section may have been updated after the patient was seen, as this information can be updated by other users. Medical History Deviated septum Epilepsy Hyperthyroidism Seizure Thyroid Nodule Thyromegaly Surgical History History of endometrial ablation Status post partial thyroidectomy right side Family History Grandmother Diabetes Father Coronary artery disease Hypertension Other Thyroid disorder Social History Smoking Status: Current every day smoker alcohol intake: never substance use type: denies use current occupational status: employed Travel in the last 8 weeks: None household members: children housing: apartment ROS Obtained: Yes All systems reviewed & no additional complaints except as documented and Yes Systems reviewed as appropriate & no additional complaints except as documented Constitutional Constitutional: Reports system reviewed and no additional complaints, except as documented and Reports as per HPI ENT Ears, Nose, Mouth, and Throat: Reports system reviewed and no additional complaints, except as documented, Reports as per HPI and Reports sore throat Cardiovascular Cardiovascular: Reports system reviewed and no additional complaints, except as documented and Reports as per HPI Respiratory Respiratory: Reports system reviewed and no additional complaints, except as documented and Reports as per HPI Gastrointestinal Gastrointestingal: Reports system reviewed and no additional complaints, except as documented and as per HPI Physical Exam General General appearance: alert and in no apparent distress ENT ENT exam: Present mucous membranes moist Expanded ENT Exam Nose exam: Absent sinus tenderness Throat exam: Present tonsillar erythema and other (no blistering noted) Respiratory Respiratory exam: Present normal lung sounds bilaterally; Absent respiratory distress or wheezes Cardiovascular Cardiovascular exam: Present regular rate, normal rhythm and normal heart sounds Neurological Exam Neurological exam: Present alert, oriented X3 and normal gait Medical Decision Making Tarun Inquiry Pt receiving controlled substance: No Tarun was queried for this patient: No Lab Data Lab results reviewed: Yes I reviewed the patient's lab results. Medical Decision Narrative: Patient had surgery on her thyroid 2 weeks ago complaining with sore throat and hurting when she would swallow feeling like she has blisters in the back of her throat discussed with patient about where she is less than 30days post op it is recommended that she be seen in the ED and patient declined Did agreed to have Strep test and agreed to follow up with ENT today if they can see her and she agreed Called ENT office spoke with Sophia Romero APRN and she advised to have patient come on up to the office upon leaving the [facility]
[2023-07-04 08:59] LABS: UTC Strep Screen (Rapid) Negative (Negative)
[2023-07-04 09:13] VITALS: BP 108/68; PULSE 91; RESP 18; TEMP 36.8; O2SAT 99
== END 2023-07-04 09:15 | disposition home or self-care (01) ==
PROVIDERS: Emergency Provider Nurse Practitioner; PCP Physician Assistant
DX: J02.9 Acute pharyngitis, unspecified (principal); R13.10 Dysphagia, unspecified; G40.919 Epilepsy, unspecified, intractable, without status epilepticus; E89.0 Postprocedural hypothyroidism; F17.200 Nicotine dependence, unspecified, uncomplicated
CPT/HCPCS: 87880; 99212; 99213; G0463

== ENCOUNTER 2023-07-20 13:10 | Outpatient (CLI) | payer OTHER, SELFPAY ==
[2023-07-20 14:22] LABS: Free T4 (Free Thyroxine) 0.89 ng/dl (0.78-2.19)
[2023-07-20 14:36] LABS: Thyroid Stimulating Hormone 1.16 uIU/mL (0.465-4.68)
== END 2023-07-20 23:59 ==
LOC: LAB 13:11
PROVIDERS: PCP Physician Assistant; Visit Provider Nurse Practitioner
DX: E89.0 Postprocedural hypothyroidism (principal)
CPT/HCPCS: 36415; 84439; 84443

== ENCOUNTER 2023-09-07 14:52 | Outpatient (CLI) | payer OTHER, SELFPAY ==
--- NOTE | 2023-09-07 14:59 | XR_ITS ---
FINAL REPORT CLINICAL HISTORY: cough, sob COMPARISON: 08/16/2022 FINDINGS: Two views of the chest were obtained. The heart size and pulmonary vascularity are within normal limits. The mediastinum is normal. No acute pulmonary abnormality is identified. There is no pneumothorax. The bony thorax is intact. IMPRESSION: No active cardiopulmonary disease. Reviewed, Interpreted and Dictated by Chu Carlson III, MD Transcribed by Sonali Ly Authenticated and [facility]
== END 2023-09-07 23:59 | disposition home or self-care (01) ==
LOC: RAD 14:52
PROVIDERS: PCP Physician Assistant; Visit Provider Family Medicine
DX: R06.02 Shortness of breath (principal); R05.9 Cough, unspecified
CPT/HCPCS: 71046

== ENCOUNTER 2023-09-19 13:03 | Emergency (ER) | payer OTHER, SELFPAY ==
[2023-09-19 13:15] VITALS: BP 115/72; PULSE 89; RESP 18; TEMP 36.7; O2SAT 100; BMI 32.8
--- NOTE | 2023-09-19 13:27 | ED_ITS ---
Discharge Plan Disposition Patient Disposition: Home, Self-Care Condition: Good Prescriptions Prescriptions: New methylprednisolone 4 mg Tablets,Dose Pack 4 mg PO DIRECTED 6 Days Qty: 21 0RF Rx Instructions: Take 1 pack as directed for 6 days No Action topiramate [Topamax] 25 mg tablet 25 mg PO BID 30 Days Qty: 60 2RF Nexplanon 68 mg implant 1 implant subdermal ONCE dextroamphetamine-amphetamine [Adderall XR] 20 mg capsule,extended release 24hr 20 mg PO DAILY Qty: 30 0RF dextroamphetamine-amphetamine [Adderall XR] 20 mg capsule,extended release 24hr 20 mg PO DAILY 30 Days Qty: 30 0RF Referrals Follow up/Referrals: Destinee Diaz PA [Primary Care Provider] - See instructions Activity Restrictions/Add. Instructions Additional Instructions/Restrictions: Rest the extremity, apply ice for 15 minutes as tolerated three or four times per day, Wear the stu wrap for compression, Elevate the extremity as tolerated while you are resting. Take ibuprofen for pain. I sent in a prescription to your pharmacy. Follow up with your regular doctor. GO TO THE ER FOR ANY WORSENING SYMPTOMS Clinical Impressions Clinical Impression: Pain in right arm Instructions Patient Instructions: DI for Arm Pain Discharge ED Provider: Favian Valladares [facility] General Stated complaint: birthcontrol in right arm causing pain Mode of Arrival: Ambulatory Source of Information: Patient Limitations: No Limitations Time Seen by Provider: 09/19/23 13:27 Description of Symptoms (Recalled from Triage Doc. by RN): Pt has B/C placed in arm 2 years ago. On 09/15/2023 has pain shooting from wrist to bicep. 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 HEENT Symptoms (Recalled from RN notes): No Resp Symptoms (Recalled from RN notes): No Skin Symptoms (Recalled from RN notes): No MS Symptoms (Recalled from RN notes): Yes Functional Status (Recalled from RN notes): n/a History of Present Illness Provider Complaint: She states that for the past 4 days she has had right arm pain in the location of her implanted control device. She denies any injury. Related Data Home Medications Medication Instructions Recorded Confirmed etonogestrel 68 mg subdermal 1 implant subdermal ONCE nexplanon 03/01/22 09/19/23 implant (Nexplanon) Previous Rx's Medication Instructions Recorded topiramate 25 mg tablet (Topamax) 25 mg PO BID 30 days #60 tabs 06/19/23 dextroamphetamine-amphetamine ER 20 mg PO DAILY #30 caps 07/13/23 20 mg 24hr capsule,extend release (Adderall XR) dextroamphetamine-amphetamine ER 20 mg PO DAILY 30 days #30 caps 07/13/23 20 mg 24hr capsule,extend release (Adderall XR) methylprednisolone 4 mg tablets in 4 mg PO DIRECTED 6 days #21 tabs 09/19/23 a dose pack Allergies Allergy/AdvReac Type Severity Reaction Status Date / Time No Known Allergies Allergy Verified 09/19/23 13:26 Worker's Comp Is this a Worker's Comp case?: No [facility] Disclaimer: The information contained in this section may have been updated after the patient was seen, as this information can be updated by other users. Medical History Abnormal thyroid stimulating hormone level Vasovagal syncope Epilepsy Thyromegaly Thyroid Nodule Deviated septum Hyperthyroidism Seizure Surgical History History of partial thyroidectomy Status post partial thyroidectomy right side History of endometrial ablation Family History Grandmother Diabetes Father Coronary artery disease Hypertension Other Thyroid disorder Social History Smoking Status: Current every day smoker alcohol intake: never substance use type: denies use current occupational status: employed Travel in the last 8 weeks: None household members: children housing: apartment ROS Obtained: Yes All systems reviewed & no additional complaints except as documented Constitutional Constitutional: Denies chills and Denies fever(s) Eyes Eyes: Denies eye discharge ENT Ears, Nose, Mouth, and Throat: Denies dizziness, Denies otalgia and Denies sore throat Cardiovascular Cardiovascular: Denies chest pain Respiratory Respiratory: Denies shortness of breath, Denies chest congestion, Denies cough, Denies stridor and Denies wheezing Gastrointestinal Gastrointestingal: Denies nausea or vomiting Musculoskeletal Musculoskeletal: Reports as per HPI Integumentary/Breasts Skin/Breast: Denies rash Neurologic Neurologic: Denies dizziness and Denies paresthesias Allergic/Immunologic Allergic/Immunologic: Denies wheezing Physical Exam General General appearance: alert and in no apparent distress Head Head exam: atraumatic, normocephalic and normal inspection Eye Eye exam: Present normal appearance, PERRL and EOMI ENT ENT exam: Present normal exam, normal oropharynx, mucous membranes moist, TM's normal bilaterally and normal external ear exam Neck Neck exam: Present normal inspection, full ROM and trachea midline; Absent meningismus or lymphadenopathy Chest Chest inspection: Present normal inspection and symmetric chest wall rise; Absent tenderness Respiratory Respiratory exam: Present normal lung sounds bilaterally; Absent respiratory distress Cardiovascular Cardiovascular exam: Present regular rate and normal rhythm; Absent JVD Abdominal Exam Abdominal exam: Present soft and normal bowel sounds; Absent distention, tenderness or guarding Extremities Exam Extremities exam: Present normal capillary refill; Absent calf tenderness Expanded Upper Extremity Exam Right: Shoulder exam: Present normal inspection and full ROM; Absent tenderness or tenderness over AC joint Arm exam: Present normal inspection and full ROM; Absent tenderness or swelling Elbow exam: Present normal inspection and full ROM; Absent tenderness, pain w/ pronation/supination or tenderness over radial head Forearm/Wrist exam: Present normal inspection and full ROM; Absent tenderness, tenderness over anatomical snuff box or pain with axial thumb loading Hand exam: Present normal inspection and full ROM; Absent tenderness or swelling Neuromotor exam: Normal wrist extension, thumb opposition, thumb IP flexion, thumb adduction and fingers 2-5 abduction Neurosensory exam: Normal radial nerve, ulnar nerve and median nerve Vascular exam: Normal capillary refill, radial pulse and ulnar pulse Back Exam Back exam: Present normal inspection; Absent tenderness Neurological Exam Neurological exam: Present alert and oriented X3 Psychiatric Psychiatric exam: Present normal affect and normal mood Skin Skin exam: Present warm, dry, intact and normal color Lymphatic Lymphatic Findings: no adenopathy Medical Decision Making Medical Records Medical records reviewed: No I reviewed the patient's medical records. Tarun Inquiry Pt receiving controlled substance: No Vital Signs: 09/19/23 13:15 Temperature 98.1 F Temperature Source Oral Pulse Rate [Right Radial] 89 Respiratory Rate 18 Blood Pressure [Right Arm] 115/72 Blood Pressure Mean [Right Arm] 86 Blood Pressure Source [Right Arm] Automatic Cuff Blood Pressure Position [Right Arm] Sitting 02 Sat by Pulse Oximetry 100 Oxygen Delivery Method Room Air
[2023-09-19 14:06] VITALS: BP 115/72; PULSE 89; RESP 18; TEMP 36.7; O2SAT 100
== END 2023-09-19 14:06 | disposition home or self-care (01) ==
PROVIDERS: Emergency Provider Nurse Practitioner Family; PCP Physician Assistant
DX: M79.601 Pain in right arm (principal)
CPT/HCPCS: 99212; 99214; G0463

== ENCOUNTER 2023-10-30 13:24 | Outpatient (CLI) | payer OTHER, SELFPAY ==
[2023-10-30 14:58] LABS: HCG,Quantitative < 2 mIU/ml (0-5.42)
== END 2023-10-30 23:59 | disposition home or self-care (01) ==
LOC: LAB 13:27
PROVIDERS: PCP Physician Assistant; Visit Provider Obstetrics & Gynecology
DX: Z32.02 Encounter for pregnancy test, result negative (principal)
CPT/HCPCS: 36415; 84702

== ENCOUNTER 2023-11-06 15:57 | Outpatient (CLI) | payer OTHER, SELFPAY ==
[2023-11-06 16:26] LABS: Basophils # 0.1 K/mm3 (0-0.2); Basophils % 0.5 % (0.1-2.0); Eosinophils # 0.6 K/mm3 (0.0-0.4); Eosinophils % 6.1 % (0.1-12.0); Hematocrit 40.4 % (37.0-47.0); Hemoglobin 13.6 g/dL (12.2-16.2); Lymphocytes # 3.1 K/mm3 (0.7-4.5); Lymphocytes % 34.1 % (10-50); Mean Corpuscular HGB Conc 33.7 g/dL (31.8-35.4); Mean Corpuscular Hemoglobin 31.7 pg (27.0-31.2); Mean Corpuscular Volume 93.9 fl (81-99); Mean Platelet Volume 10.3 fl (7.4-10.4); Monocytes # 0.4 K/mm3 (0.1-1.0); Monocytes % 4.3 % (1.7-9.3); Platelet Count 214 K/mm3 (142-424); Red Blood Count 4.31 M/mm3 (4.20-5.40); Red Cell Distribution Width 13.1 % (11.5-17.5); White Blood Count 9.1 K/mm3 (4.8-10.8)
[2023-11-06 17:48] LABS: Chloride 108 mmol/L (98-107); Potassium 3.9 mmoL/L (3.5-5.1); Sodium 139 mmol/L (136-145)
[2023-11-06 17:51] LABS: Alanine Aminotransferase 16 U/L (12-78); Albumin Level 4.2 g/dl (3.5-5.0); Albumin/Globulin Ratio 1.4 (1.1-1.8); Alkaline Phosphatase 65 U/L (38-126); Aspartate Amino Transferase 24 U/L (14-36); Bilirubin,Total 0.4 mg/dl (0.2-1.3); Blood Urea Nitrogen 16 mg/dl (7-17); Calcium 9.1 mg/dl (8.4-10.2); Carbon Dioxide 26 mmol/L (22.0-30.0); Estimated Glomerular Filt Rate 76 ml/min (>60); GFR (African American) 92 ML/MIN (>60); Globulin 3.1 g/dL (1.3-3.2); Glucose 84 mg/dl (74-100); Total Protein,Serum 7.3 g/dl (6.3-8.2)
[2023-11-06 18:13] LABS: Anion Gap 8.9 mEq/L (5-15); HCG,Quantitative < 2 mIU/ml (0-5.42)
== END 2023-11-06 23:59 | disposition home or self-care (01) ==
LOC: LAB 15:58
PROVIDERS: PCP Physician Assistant; Visit Provider Obstetrics & Gynecology
DX: Z30.09 Encounter for other general counseling and advice on contraception (principal)
CPT/HCPCS: 36415; 80053; 84702; 85025

== ENCOUNTER 2023-11-09 07:18 | Day surgery (SDC) | payer OTHER, SELFPAY ==
[2023-11-07 12:14] VITALS: BMI 32.1
[2023-11-09] VITALS (10 sets, daily range): BP systolic 100–124; BP diastolic 48–72; PULSE 58–76; RESP 14–18; TEMP 36.4–36.5; O2SAT 96–100
--- NOTE | 2023-11-09 08:08 | P.PNANES_ITS ---
[facility] Disclaimer: The information contained in this section may have been updated after the patient was seen, as this information can be updated by other users. Medical History Abnormal thyroid stimulating hormone level Vasovagal syncope Epilepsy Thyromegaly Thyroid Nodule Deviated septum Hyperthyroidism Seizure Surgical History History of partial thyroidectomy Status post partial thyroidectomy right side History of endometrial ablation Family History Grandmother Diabetes Father Coronary artery disease Hypertension Other Thyroid disorder Social History Smoking Status: Current every day smoker alcohol intake: never substance use type: denies use current occupational status: employed Travel in the last 8 weeks: None household members: children housing: apartment [facility] Anesthesia Checklist Patient Identification Patient Identification: Arm Band Structural Data Admitted From: Home Planned Operative Procedure/s: Laparoscopic Bilateral Salpingectomy Consent for Planned Operative Procedure(s) Verified: Yes Verified Documents: Surgical Consent and History and Physical NPO Status Verified Time NPO: 00:00 Additional verifications Anesthesia Reactions: No Hx Blood Transfusions: No Blood Transfusion Reaction: No Airway Assessment Mallampati Score:: Class II C-Spine Mobility Assessed: Yes TMJ Mobility Assessed: Yes Dentition: Good Dentition Neurological Assessment Level of Consciousness: Awake, Alert and Appropriate Anesthesia Plan Anesthesia Risk discussed: Yes Anesthesia Plan: Verified ASA Class: II Anesthesia Type: General
--- NOTE | 2023-11-09 08:53 | EXP.OP.NOTE ---
Date of procedure: 11/09/23 Pre-op Diagnosis:: 1. Desires sterilization 2. History of an endometrial ablation Post-op Diagnosis:: 1. Desires sterilization 2. History of an endometrial ablation 3. 4cm right ovarian cyst Procedure performed:: Laparoscopic bilateral salpingectomy and laparoscopic right ovarian cyst drainage Surgeon:: Krys Webb DO ELECTRICAL MANUFACTURING ENGINEER:: Jm Mtz Anesthesia: GETA Estimated blood loss (mL): 10 Operative findings:: 1. Bimanual examination revealed an anteverted 6-week size uterus with smooth contour without any adnexal masses. 2. Laparoscopic exam revealed normal-appearing uterus, ovaries, fallopian tubes and liver. There was a 4cm fluid filled right ovarian cyst. It drained clear fluid. Operative note:: Shelby De Anda is a 28-year-old G4, P2022 who desires permanent sterilization. She has a history of an endometrial ablation and was previously using Nexplanon for contraception but reports she had numbness and tingling in her arm and desired removal. She was not able to take OCPs reliably. Risk and benefits were reviewed at length. We discussed LARCs and she desired to proceed with a permanent procedure. The patient was taken to the operating room where general anesthesia was obtained and noted to be adequate. SCDs were placed for thromboembolism prophylaxis and found to be working. The patient was placed in the dorsal lithotomy position using yellowfin stirrups. Timeout verified the correct patient and procedure. The patient was prepped and draped in a usual sterile fashion. A catheter was used to drain her bladder. An acorn uterine manipulator was placed and my top gloves were removed. 10mL of Lidocaine with epinepherine was injected infraumbilically and a scalpel was used to make a 5 mm infraumbilical incision with the assistance from a hemostat. The skin was tented and Optiview blunt trocar was introduced into the abdomen in the usual fashion. CO2 gas was connected with an initial pressure of 6 mmHg noted. Pneumoperitoneum was created to a pressure of 15 mmHg. The laparoscopic camera was inserted and a quick survey of the abdomen revealed grossly normal anatomy. The uterus appeared to be anteverted with a normal size shape and contour. The patient was placed in Trendelenburg. 10mLs of local anesthetic was injected and a 5mm incision was then made in the right lower quadrant with careful attention to avoid the rectus muscles and vasculature and under direct laparoscopic visualization a blunt trocar was introduced into the abdominal cavity. This process was repeated on the left side with an 8mm trocar. The fallopian tubes were identified on the cornu of the uterus and followed out to the ovaries which revealed grossly appearing anatomy except for above mentioned ovarian cyst. A grasper was used to elevate the left fallopian tube. The Ligasure was used to grasp the fimbriated end of the fallopian tube, ensuring complete removal of the fimbriae, it was clamped, coagulated and transected. This process was repeated serially working towards the uterus to allow complete removal of the fallopian tube. Careful attention was given to transected the Mesosalpinx proximal to the fallopian tube. The fallopian tube was removed from the abdominal cavity and passed off the operative field to be sent to pathology. Hemostasis was noted. Attention was then turned to the right fallopian tube and the process was repeated. The L-hook on the ligasure was used to incise the cyst wall and the suction club licensee was used to suction out the cyst. Hemostasis was noted. The pressure was dropped and the operative sites were noted to be hemostatic. Pneumoperitoneum reduced, and all ports removed. The 3 abdominal incisions were closed with a single simple interrupted suture using 4-0 Monocryl. Dermabond was applied to each skin incision. The Hoberg uterine manipulator was removed. All counts were correct x2, per nursing. The patient was extubated, stable, and transferred to the PACU. She will be discharged after meeting all DC criteria to include voiding, ambulating and tolerating PO independently. Condition: stable Disposition: same day Specimens:: Bilateral fallopian tubes Complications:: None
[2023-11-09] MEDS: LIDOCAINE 1% W/EPI 1:100,000 20ML VIAL 40 ML (09:30)
[2023-11-09] MEDS: SODIUM CHLORIDE IRRIG SOLUTION 3,000 ML 25 ML IR (09:54)
--- NOTE | 2023-11-09 10:23 | P.PNANES_ITS ---
[facility] Anesthesia Record Part I Anesthesia Record I Intake, IV Amount: 2,000 Hydration: Adequate Estimated blood loss (mL): 0 Urine output (mL): 0 Blood Pressure: 114/58 SaO2: 100 Pulse Rate: 63 Airway Patency: Patent Respiratory Rate: 14 Temperature: 97.5 F Patient is:: Awake Stable to PACU at:: 10:18
[2023-11-09] MEDS: MORPHINE 2MG/ML SYRINGE 2 MG IV (10:33)
--- NOTE | 2023-11-09 10:38 | SUR.OPER ---
during the procedure found a cyst on the patients right ovary. the patients significant other was notified and gave verbal consent for to drain the cyst. the patients consent was updated and myself (opal [email or web address]) and (opal zavala) initialed and dated the changes made to the consent.
--- NOTE | 2023-11-09 14:47 | EXP.ANES.II ---
[facility] Anesthesia Record Part II Anesthesia Record Part II Discharge Time: 10:48 Destination: Surgical Day Care (OP Surgery) PACU nurse assessment reviewed?: Yes Patient Condition:: Good Anesthesia Complications:: None Swallowing reflex intact?: Yes Airway Patency: Patent Cyanosis?: No Blood Pressure: 124/59 SaO2: 100 Respiratory Rate: 18 Pulse Rate: 60 Temperature: 97.7 F Mental Status: Alert & Oriented Pain level:: 3 Nausea and/or vomitting:: None Intake, IV Amount: 0 Hydration: Adequate
== END 2023-11-09 11:19 | disposition home or self-care (01) ==
PROVIDERS: PCP Physician Assistant; Visit Provider Obstetrics & Gynecology
PROC: (CPT 58661; principal; 2023-11-09 08:45)
DX: Z30.2 Encounter for sterilization (principal); N83.201 Unspecified ovarian cyst, right side
CPT/HCPCS: 58661; 49322; J1885; J2175; J2250; J2270; J2405; J2710; J3010

== ENCOUNTER 2023-12-15 15:27 | Emergency (ER) | payer OTHER, SELFPAY ==
--- NOTE | 2023-12-15 16:01 | US_ITS ---
PROCEDURE INFORMATION: Exam: US Pelvis, Transvaginal, Non-Obstetric Exam date and time: 12/15/2023 4:06 PM Age: 28 years old Clinical indication: Pelvic pain; Additional info: Vaginal bleeding S/P tubal TECHNIQUE: Imaging protocol: Real-time transvaginal pelvic (non-obstetric) ultrasound with image documentation. Transvaginal imaging was used for better evaluation of the endometrium, adnexa, and/or cervix. COMPARISON: No relevant prior studies available. FINDINGS: Uterus: The uterus measures 7.2 x 3.3 x 4.9 cm. The endometrial lining measures 0.3 cm. Right ovary/adnexa: The right ovary measures 3.7 x 2.2 x 2.2 cm. There is a right ovarian dominant follicle measuring 2.2 cm. There is normal arterial and venous flow to the right ovary. Left ovary/adnexa: The left ovary measures 2.0 x 1.4 x 2.0 cm. There is normal arterial and venous flow to the left ovary. Urinary bladder: Urinary bladder is limited. Intraperitoneal space: No free fluid. IMPRESSION: Right ovarian dominant follicle. Otherwise unremarkable study.
[2023-12-15 16:08] VITALS: BP 149/86; PULSE 79; RESP 20; TEMP 36.9; O2SAT 99; BMI 33.6
--- NOTE | 2023-12-15 16:38 | CT_ITS ---
PROCEDURE INFORMATION: Exam: CT Abdomen And Pelvis With Contrast Exam date and time: 12/15/2023 5:09 PM Age: 28 years old Clinical indication: Other: Bleeding; Prior surgery; Surgery date: 1-6 months; Surgery type: Tubal; Additional info: Vaginal bleeding post op 1mo TECHNIQUE: Imaging protocol: Computed tomography of the abdomen and pelvis with contrast. Radiation optimization: All CT scans at this facility use at least one of these dose optimization techniques: automated exposure control; mA and/or kV adjustment per patient size (includes targeted exams where dose is matched to clinical indication); or iterative reconstruction. Contrast material: ISOVUE; Contrast volume: 75 ml; Contrast route: IV; COMPARISON: 1. US TRANSVAGINAL 12/15/2023 4:06 PM 2. CR XR CHEST 2V 09/07/2023 3:07 PM FINDINGS: Liver: Normal. Gallbladder and biliary ducts: No acute process. Pancreas: Normal. Spleen: Normal. Adrenal glands: The adrenal glands appear normal. Kidneys and ureters: There are no soft tissue renal masses or hydronephrosis. Stomach and bowel: There is large volume stool throughout the colon. Appendix: No evidence of appendicitis. Intraperitoneal space: Unremarkable. Vasculature: The abdominal aorta and its major branches appear normal without evidence of aneurysm or stenosis. There are pelvic phleboliths. Lymph nodes: No lymphadenopathy. Urinary bladder: Unremarkable as visualized. Reproductive: No acute process. Bones/joints: The visualized osseous structures of the abdomen and pelvis appear normal for patient age. Soft tissues: There is a small fat containing umbilical hernia. IMPRESSION: No acute inflammatory or obstructive process is identified. Incidental findings are described within the findings section.
--- NOTE | 2023-12-15 16:38 | HMH.EDGENADL ---
Discharge Plan Disposition Patient Disposition: Home, Self-Care Chief Complaint: Urogenital-Female Prescriptions Prescriptions: No Action ibuprofen 800 mg tablet 800 mg PO Q8H PRN (Reason: pain) Qty: 60 2RF Referrals Follow up/Referrals: Destinee Diaz PA [Primary Care Provider] - See instructions Activity Restrictions/Add. Instructions Additional Instructions/Restrictions: Follow-up with Dr. Webb regarding your vaginal bleeding. Call your family doctor to establish care for this visit to the emergency department and schedule follow-up within 48 hours to ensure improvement. If you have any worsening of your condition or any other concerning signs or symptoms, return to the emergency department or your primary care doctor for further evaluation. Clinical Impressions Clinical Impression: Vaginal bleeding Instructions Patient Instructions: DI for Urinary Tract Infection (UTI), DI for Urinary Tract Infection in Children Print Language Print Language: Turkish Discharge ED Provider: Joss Parker General Adult HPI General Chief complaint: Urogenital-Female Stated complaint: R Side pain with bleeding Time Seen by Provider: 12/15/23 16:03 Mode of Arrival: Ambulatory Source of Information: Patient Limitations: No Limitations Description of Symptoms (Recalled from ER Triage Doc. by RN): pt to ed c/o pelvic pain and vaginal bleeding. pt reports a uterine ablasion x 5 years ago an most recently a tubal x1 month ago. pt states x2 days ago she started experiencing vaginal bleeding with pelvic pain. History of Present Illness HPI narrative: Please note that above description of symptoms, in this electronic medical record under categorization of recalled from ER triage doctor by RN are reflective of an initial nursing assessment, however, is not reflective of my full history and physical exam that was personally taken and clarified. Consequentially, this preceding description of symptoms, which may include the patient's categorized chief complaint in the EMR, do not reflect my personal clinical impression, and the ultimate description of history of present illness and patient stated complaints should be deferred to this section of the note. Unless stated otherwise or congruent with this section of the note, additional signs, symptoms, or incongruence should be interpreted as inaccurate with my clinical impression. Related Data Previous Rx's ?Medication ?Instructions ?Recorded ibuprofen 800 mg tablet 800 mg PO Q8H PRN pain #60 tabs 11/09/23 Allergies Allergy/AdvReac Type Severity Reaction Status Date / Time No Known Allergies Allergy Verified 11/23/23 13:56 PFSH [facility] Disclaimer: The information contained in this section may have been updated after the patient was seen, as this information can be updated by other users. Medical History Abnormal thyroid stimulating hormone level Vasovagal syncope Epilepsy Thyromegaly Thyroid Nodule Deviated septum Hyperthyroidism Seizure Surgical History History of partial thyroidectomy Status post partial thyroidectomy right side History of endometrial ablation Family History Grandmother Diabetes Father Coronary artery disease Hypertension Other Thyroid disorder Social History Smoking Status: Never smoker alcohol intake: never substance use type: denies use current occupational status: employed Travel in the last 8 weeks: None household members: children housing: apartment ROS Obtained: Yes All systems reviewed & no additional complaints except as documented Physical Exam General General appearance: alert Head Head exam: atraumatic and normocephalic Eye Eye exam
[2023-12-15 17:16] LABS: Basophils # 0.1 K/mm3 (0-0.2); Eosinophils # 0.4 K/mm3 (0.0-0.4); Eosinophils % 5.4 % (0.1-12.0); Hematocrit 41.9 % (37.0-47.0); Hemoglobin 13.6 g/dL (12.2-16.2); Lymphocytes # 2.7 K/mm3 (0.7-4.5); Lymphocytes % 36.8 % (10-50); Mean Corpuscular HGB Conc 32.4 g/dL (31.8-35.4); Mean Corpuscular Hemoglobin 31.3 pg (27.0-31.2); Mean Corpuscular Volume 96.3 fl (81-99); Mean Platelet Volume 9.2 fl (7.4-10.4); Monocytes # 0.4 K/mm3 (0.1-1.0); Monocytes % 4.9 % (1.7-9.3); Neutrophils # 3.8 K/mm3 (1.8-7.8); Neutrophils % 51.8 % (37.0-80.0); Platelet Count 238 K/mm3 (142-424); Red Blood Count 4.34 M/mm3 (4.20-5.40); Red Cell Distribution Width 12.9 % (11.5-17.5); White Blood Count 7.2 K/mm3 (4.8-10.8)
[2023-12-15 17:16] LABS: Chloride 111 mmol/L (98-107)
[2023-12-15 17:17] LABS: Albumin Level 4.3 g/dl (3.5-5.0); Potassium 3.9 mmoL/L (3.5-5.1); Sodium 140 mmol/L (136-145)
[2023-12-15 17:19] LABS: Blood Urea Nitrogen 9 mg/dl (7-17); Creatinine Clearance Estimated 187 mL/min (50-200); Estimated Glomerular Filt Rate 101 ml/min (>60); GFR (African American) 122 ML/MIN (>60)
[2023-12-15 17:20] LABS: Alanine Aminotransferase 21 U/L (12-78); Albumin/Globulin Ratio 1.3 (1.1-1.8); Alkaline Phosphatase 69 U/L (38-126); Anion Gap 9.9 mEq/L (5-15); Aspartate Amino Transferase 28 U/L (14-36); Bilirubin,Total 0.7 mg/dl (0.2-1.3); Calcium 8.7 mg/dl (8.4-10.2); Carbon Dioxide 23 mmol/L (22.0-30.0); Globulin 3.2 g/dL (1.3-3.2); Glucose 84 mg/dl (74-100); Total Protein,Serum 7.5 g/dl (6.3-8.2)
[2023-12-15 17:22] LABS: Activated Partial Thrombo Time 28.1 seconds (22.8-30.6); INR 0.95 (0.9-1.1); Prothrombin Time 10.7 seconds (10.1-12.5)
[2023-12-15 17:39] VITALS: BP 119/70; PULSE 66; O2SAT 100
[2023-12-15 17:40] LABS: HCG,Quantitative < 2 mIU/ml (0-5.42)
--- NOTE | 2023-12-15 17:41 | PC.NURSE ---
ROUNDED ON PT STATES HER PAIN LEVEL IS AT A 7 INFORMED NURSES OF PAIN OBTAINED VITAL
[2023-12-15 17:51] LABS: Microscopic, Urine URINE MICROSCOPIC (MICROSCOPIC)
[2023-12-15 17:56] LABS: Appearance,Urine CLEAR (Clear); Bilirubin,Urine Negative (Negative); Blood, Urine 1+ (Negative); Color,Urine YELLOW (Yellow); Glucose,Urine (UA) Negative (Negative); Ketones,Urine Negative (Negative); Leukocyte Esterase,Urine Negative (Negative); Nitrate,Urine Negative (Negative); PH,Urine 5.5 (5.0-8.5); Protein,Urine Negative (Negative); Urobilinogen,Urine 0.2 EU/dl (0.2)
[2023-12-15 18:22] VITALS: BP 113/67; PULSE 67; RESP 18; TEMP 36.7; O2SAT 100
[2023-12-15 18:29] LABS: RBC,Urine Occasional #/hpf (0-3); Squamous Epithelial Cell,Urine Occasional #/hpf (0-5)
== END 2023-12-15 18:23 | disposition home or self-care (01) ==
LOC: UTC 15:29 → ER 15:57
PROVIDERS: Emergency Provider Emergency Medicine; PCP Physician Assistant
DX: R10.2 Pelvic and perineal pain (principal); N93.9 Abnormal uterine and vaginal bleeding, unspecified
CPT/HCPCS: 74177; 76830; 80053; 81001; 84702; 85025; 85610; 85730; 96374; 99285; J1885; Q9967

== ENCOUNTER 2024-01-01 10:31 | Emergency (ER) | payer OTHER, SELFPAY ==
[2024-01-01 10:50] VITALS: BP 102/60; PULSE 98; RESP 18; TEMP 37.1; O2SAT 97; BMI 33.7
--- NOTE | 2024-01-01 11:15 | ED_ITS ---
Discharge Plan Disposition Patient Disposition: Home, Self-Care Condition: Good Prescriptions Prescriptions: New amoxicillin-pot clavulanate 875-125 mg Tablet 1 tab PO Q12H Qty: 20 0RF fluticasone propionate [Flonase Allergy Relief] 50 mcg/actuation spray ,suspension 2 spray intranasal DAILY Qty: 16 0RF Rx Instructions: administer into each nostril daily pseudoephedrine HCl [Sudafed 12 Hour] 120 mg tablet extended release 120 mg PO Q12H PRN (Reason: nasal congestion) Qty: 20 0RF benzonatate 100 mg capsule 100 mg PO TID PRN (Reason: cough) Qty: 30 0RF Referrals Follow up/Referrals: Destinee Diaz PA [Primary Care Provider] - See instructions Activity Restrictions/Add. Instructions Additional Instructions/Restrictions: *Monitor Temp, Over the counter Motrin or Tylenol as directed/as needed Tylenol every 4 hours and Motrin every 6 hours (as long as your family doctor has told you that you can take it) for fever or pain. and straight to ER if unable to lower temp less than 101.0 after medication given *Warm salt water gargles may help to soothe the throat *Throat Lozenges? *Warm fluids like tea with honey may help to soothe the throat? *Sleep elevated *Humidifier/Vaporizer *Flonase 2 sprays in each nostril daily but be aware that it may take 2-3 days before you notice improvement Take medication as prescribed Follow up IMMEDIATELY for new or worsening symptoms or no Noticeable improvement over the next 48-72 hours. 911 for difficulty breathing or swallowing Clinical Impressions Clinical Impression: Sinusitis, Otitis media Instructions Patient Instructions: DI for Sinusitis, Sinusitis, Middle Ear Infection Print Language Print Language: Turkish Discharge ED Provider: Beti Castillo [facility] [place] HPI General Stated complaint: congestion, ear complaints Mode of Arrival: Ambulatory Source of Information: Patient Limitations: No Limitations Time Seen by Provider: 01/01/24 11:15 Description of Symptoms (Recalled from Triage Doc. by RN): PATIENT C/O CONGESTION AND CAN'T HEAR OUT OF RIGHT EAR X 1 WEEK HEENT Symptoms (Recalled from RN notes): Yes Resp Symptoms (Recalled from RN notes): No Skin Symptoms (Recalled from RN notes): No MS Symptoms (Recalled from RN notes): No Functional Status (Recalled from RN notes): WNL History of Present Illness Provider Complaint: Patient states that she has been having sinus pain and pressure and pain and pressure in her right ear and not being able to hear much out of it so today she came in to get checked Related Data Previous Rx's ?Medication ?Instructions ?Recorded amoxicillin 875 mg-potassium 1 tab PO Q12H #20 tabs 01/01/24 clavulanate 125 mg tablet benzonatate 100 mg capsule 100 mg PO TID PRN cough #30 caps 01/01/24 fluticasone propionate 50 2 spray intranasal DAILY #16 grams 01/01/24 mcg/actuation nasal spray,suspension (Flonase Allergy Relief) pseudoephedrine HCl 120 mg 120 mg PO Q12H PRN nasal 01/01/24 tablet,extended release (Sudafed congestion #20 tabs 12 Hour) Allergies Allergy/AdvReac Type Severity Reaction Status Date / Time No Known Allergies Allergy Verified 12/21/23 15:51 Worker's Comp Is this a Worker's Comp case?: No [facility] Disclaimer: The information contained in this section may have been updated after the patient was seen, as this information can be updated by other users. Medical History Abnormal thyroid stimulating hormone level Vasovagal syncope Epilepsy Thyromegaly Thyroid Nodule Deviated septum Hyperthyroidism Seizure Surgical History History of partial thyroidectomy Status post partial thyroidectomy right side History of endometrial ablation Family History Grandmother Diabetes Father Coronary artery disease Hypertension Other Thyroid disorder Social History Smoking Status: Never smoker alcohol intake: never substance use type: denies use current occupational status: employed Travel in the last 8 weeks: None household members: children housing: apartment ROS Obtained: Yes All systems reviewed & no additional complaints except as documented and Yes Systems reviewed as appropriate & no additional complaints except as documented Constitutional Constitutional: Reports system reviewed and no additional complaints, except as documented, Reports as per HPI and Reports headache(s) ENT Ears, Nose, Mouth, and Throat: Reports system reviewed and no additional complaints, except as documented, Reports as per HPI, Reports otalgia, Reports headache(s), Reports sinus pain and Reports sinus pressure Cardiovascular Cardiovascular: Reports system reviewed and no additional complaints, except as documented and Reports as per HPI Gastrointestinal Gastrointestingal: Reports system reviewed and no additional complaints, except as documented and as per HPI Genitourinary Female Genitourinary: Reports system reviewed and no additional complaints, except as documented and Reports as per HPI Neurologic Neurologic: Reports headache(s) Physical Exam General General appearance: alert and in no apparent distress ENT ENT exam: Present mucous membranes moist Expanded ENT Exam TM/Canal exam: Right TM: erythema and bulging Nose exam: Present sinus tenderness Respiratory Respiratory exam: Present normal lung sounds bilaterally; Absent respiratory distress or wheezes Cardiovascular Cardiovascular exam: Present regular rate, normal rhythm and normal heart sounds Neurological Exam Neurological exam: Present alert, oriented X3 and normal gait Medical Decision Making Tarun Inquiry Pt receiving controlled substance: No Tarun was queried for this patient: No Vital Signs: 01/01/24 10:50 Temperature 98.8 F Temperature Source Oral Pulse Rate [Left Brachial] 98 H Respiratory Rate 18 Blood Pressure [Left Arm] 102/60 L Blood Pressure Mean [Left Arm] 74 Blood Pressure Source [Left Arm] Automatic Cuff Blood Pressure Position [Left Arm] Sitting 02 Sat by Pulse Oximetry 97 Oxygen Delivery Method Room Air
[2024-01-01 11:25] VITALS: BP 102/60; PULSE 98; RESP 18; TEMP 37.1; O2SAT 97
== END 2024-01-01 11:27 | disposition home or self-care (01) ==
PROVIDERS: Emergency Provider Nurse Practitioner; PCP Physician Assistant
DX: J01.90 Acute sinusitis, unspecified (principal); H66.91 Otitis media, unspecified, right ear; H92.01 Otalgia, right ear
CPT/HCPCS: 99212; 99214; G0463

== ENCOUNTER 2024-01-22 09:22 | Emergency (ER) | payer OTHER, SELFPAY ==
[2024-01-22 09:50] VITALS: BP 116/69; PULSE 82; RESP 20; TEMP 36.9; O2SAT 98; BMI 12.8
--- NOTE | 2024-01-22 09:50 | EXP.UTC ---
Discharge Plan Disposition Patient Disposition: Home, Self-Care Condition: Good Prescriptions Prescriptions: New polymyxin B sulf-trimethoprim 10,000 unit- 1 mg/mL drops 1 drp Eye-Both Q3H 7 Days Qty: 10 0RF Rx Instructions: while awake; do not exceed 6 doses in 24 hours Referrals Follow up/Referrals: Destinee Diaz PA [Primary Care Provider] - See instructions Activity Restrictions/Add. Instructions Additional Instructions/Restrictions: Use the eye drops as directed. Strict hand washing in the house hold, because conjunctivitis is very contagious. Follow up with your regular doctor. GO TO THE ER FOR ANY WORSENING SYMPTOMS OR CONCERNS Clinical Impressions Clinical Impression: Bilateral conjunctivitis Stand Alone Forms Stand Alone Forms: Work/School Release Instructions Patient Instructions: How to Instill Eye Drops, DI for Conjunctivitis Print Language Print Language: Yoruba Discharge ED Provider: Favian Valladares [facility] General Stated complaint: Swelling, redness, itch R eye Time Seen by Provider: 01/22/24 09:50 Related Data Previous Rx's ?Medication ?Instructions ?Recorded polymyxin B sulfate 10,000 1 drp Eye-Both Q3H 7 days #10 mL 01/22/24 unit-trimethoprim 1 mg/mL eye drops Allergies Allergy/AdvReac Type Severity Reaction Status Date / Time No Known Allergies Allergy Verified 12/21/23 15:51 [facility] Disclaimer: The information contained in this section may have been updated after the patient was seen, as this information can be updated by other users. Medical History Abnormal thyroid stimulating hormone level Vasovagal syncope Epilepsy Thyromegaly Thyroid Nodule Deviated septum Hyperthyroidism Seizure Surgical History History of partial thyroidectomy Status post partial thyroidectomy right side History of endometrial ablation Family History Grandmother Diabetes Father Coronary artery disease Hypertension Other Thyroid disorder Social History Smoking Status: Never smoker alcohol intake: never substance use type: denies use current occupational status: employed Travel in the last 8 weeks: None household members: children housing: apartment ROS Obtained: Yes All systems reviewed & no additional complaints except as documented Constitutional Constitutional: Denies chills and Denies fever(s) Eyes Eyes: Reports as per HPI, Denies change in vision and Reports eye discharge ENT Ears, Nose, Mouth, and Throat: Denies dizziness, Denies otalgia and Denies sore throat Cardiovascular Cardiovascular: Denies chest pain Respiratory Respiratory: Denies shortness of breath, Denies chest congestion, Denies cough, Denies stridor and Denies wheezing Gastrointestinal Gastrointestingal: Denies nausea or vomiting Musculoskeletal Musculoskeletal: Reports system reviewed and no additional complaints, except as documented and Denies arthralgias Integumentary/Breasts Skin/Breast: Denies rash Neurologic Neurologic: Denies dizziness and Denies paresthesias Allergic/Immunologic Allergic/Immunologic: Denies wheezing Physical Exam General General appearance: alert and in no apparent distress Head Head exam: atraumatic, normocephalic and normal inspection Eye Eye exam: Present PERRL, EOMI, conjunctival redness, conjunctival injection and discharge ENT ENT exam: Present normal exam, normal oropharynx, mucous membranes moist, TM's normal bilaterally and normal external ear exam Neck Neck exam: Present normal inspection, full ROM and trachea midline; Absent meningismus or lymphadenopathy Chest Chest inspection: Present normal inspection and symmetric chest wall rise; Absent tenderness Respiratory Respiratory exam: Present normal lung sounds bilaterally; Absent respiratory distress Cardiovascular Cardiovascular exam: Present regular rate and normal rhythm; Absent JVD Abdominal Exam Abdominal exam: Present soft and normal bowel sounds; Absent distention, tenderness or guarding Extremities Exam Extremities exam: Present normal inspection, full ROM and normal capillary refill; Absent calf tenderness Back Exam Back exam: Present normal inspection; Absent tenderness Neurological Exam Neurological exam: Present alert and oriented X3 Psychiatric Psychiatric exam: Present normal affect and normal mood Skin Skin exam: Present warm, dry, intact and normal color Lymphatic Lymphatic Findings: no adenopathy Medical Decision Making Medical Records Medical records reviewed: No I reviewed the patient's medical records. Screening: Per USPSTF and CDC recommendations, given the prevalence of disease in our region, it is our hospital?s policy to screen for HIV and viral Hepatitis for all patients aged 18 and over and those with ongoing risk factors. Tarun Inquiry Pt receiving controlled substance: No
[2024-01-22 10:15] VITALS: BP 116/69; PULSE 82; RESP 20; TEMP 36.9; O2SAT 98
== END 2024-01-22 10:17 | disposition home or self-care (01) ==
PROVIDERS: Emergency Provider Nurse Practitioner Family; PCP Physician Assistant
DX: H10.33 Unspecified acute conjunctivitis, bilateral (principal)
CPT/HCPCS: 99212; 99214; G0463

== ENCOUNTER 2024-04-09 13:51 | Emergency (ER) | payer OTHER, SELFPAY ==
[2024-04-09 14:10] VITALS: BP 109/74; PULSE 73; RESP 19; TEMP 36.7; O2SAT 98; BMI 36.0
--- NOTE | 2024-04-09 14:31 | EXP.UTC ---
Discharge Plan Disposition Patient Disposition: Home, Self-Care Condition: Good Prescriptions Prescriptions: New ondansetron 4 mg Tablet,Disintegrating 4 mg PO Q8H PRN (Reason: Nausea) Qty: 20 0RF No Action polymyxin B sulf-trimethoprim 10,000 unit- 1 mg/mL drops 1 drp Eye-Both Q3H 7 Days Qty: 10 0RF Rx Instructions: while awake; do not exceed 6 doses in 24 hours Referrals Follow up/Referrals: Destinee Diaz PA [Primary Care Provider] - See instructions Activity Restrictions/Add. Instructions Additional Instructions/Restrictions: Drink extra fluids with and between meals. If you have difficulty drinking, try very small amounts of water or suck on ice chips. ? Avoid fruit juices, as these do not replace minerals and can actually increase diarrhea. ? Children and adults can use sports drinks to replenish electrolytes. Younger children and infants should use products formulated for children, like oral rehydration solutions. ? Eat food in small amounts and let your stomach recover. ? Get lots of rest. You may feel tired or weak. ? No greasy or fried foods for the next 24-48 hours BRAT diet Bananas Rice Apples and [place] ? Make sure to drink plenty of liquids ? Return if needed ? Straight to ER if any life threatening symptoms ? Zofran as prescribed ? Follow up with family doctor in the next 48-72 hours if no improvement or any worsening of symptoms Clinical Impressions Clinical Impression: Nausea vomiting and diarrhea Stand Alone Forms Stand Alone Forms: Work/School Release Instructions Patient Instructions: Nausea and Vomiting-Adult, Diarrhea Print Language Print Language: Vincentian Discharge ED Provider: Beti Castillo [facility] General Stated complaint: vomiting, diarrhea Mode of Arrival: Ambulatory Source of Information: Patient Limitations: No Limitations Time Seen by Provider: 04/09/24 14:32 Description of Symptoms (Recalled from Triage Doc. 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 for Flu and COVID since it is going around Related Data Previous Rx's ?Medication ?Instructions ?Recorded polymyxin B sulfate 10,000 1 drp Eye-Both Q3H 7 days #10 mL 01/22/24 unit-trimethoprim 1 mg/mL eye drops ondansetron 4 mg disintegrating 4 mg PO Q8H PRN Nausea #20 tabs 04/09/24 tablet Allergies Allergy/AdvReac Type Severity Reaction Status Date / Time No Known Allergies Allergy Verified 12/21/23 15:51 Worker's Comp Is this a Worker's Comp case?: No [facility] Dis[facility]: The information contained in this section may have been updated after the patient was seen, as this information can be updated by other users. Medical History Abnormal thyroid stimulating hormone level Vasovagal syncope Epilepsy Thyromegaly Thyroid Nodule Deviated septum Hyperthyroidism Seizure Surgical History History of partial thyroidectomy Status post partial thyroidectomy right side History of endometrial ablation Family History Grandmother Diabetes Father Coronary artery disease Hypertension Other Thyroid disorder Social History Smoking Status: Never smoker alcohol intake: never substance use type: denies use current occupational status: employed Travel in the last 8 weeks: None household members: children housing: apartment Have you lived/traveled outside US in past 30 days?: No Contact w/someone who lives/traveled outside US past 30 days?: No Exposure to someone with infectious disease in past 14 days?: No Do you have a fever (greater than 100.4 F or 38 C)?: No Have you tested positive for COVID-19: No Exposed to someone with COVID-19 in past 14 days?: No Do you have a sore throat?: No Do you have a cough?: No Do you have any weakness?: No Do you have any diarrhea?: Yes Are you experiencing any unusual bleeding?: No Do you have any muscle aches/pain?: No Do you have any abdominal pain?: No Are you experiencing loss of taste or smell?: No ROS Obtained: Yes All systems reviewed & no additional complaints except as documented and Yes Systems reviewed as appropriate & no additional complaints except as documented Constitutional Constitutional: Reports system reviewed and no additional complaints, except as documented, Reports as per HPI, Reports body ache, Reports chills, Denies fever(s) and Denies headache(s) Eyes Eyes: Reports system reviewed and no additional complaints, except as documented and Reports as per HPI ENT Ears, Nose, Mouth, and Throat: Reports system reviewed and no additional complaints, except as documented, Reports as per HPI and Denies headache(s) Cardiovascular Cardiovascular: Reports system reviewed and no additional complaints, except as documented and Reports as per HPI Respiratory Respiratory: Reports system reviewed and no additional complaints, except as documented and Reports as per HPI Gastrointestinal Gastrointestingal: Reports system reviewed and no additional complaints, except as documented, as per HPI, diarrhea and vomiting; Denies abdominal pain Neurologic Neurologic: Denies headache(s) Physical Exam General General appearance: alert and in no apparent distress ENT ENT exam: Present normal exam, normal oropharynx, mucous membranes moist and TM's normal bilaterally Chest Chest inspection: Present normal inspection and symmetric chest wall rise Respiratory Respiratory exam: Present normal lung sounds bilaterally; Absent respiratory distress or wheezes Cardiovascular Cardiovascular exam: Present regular rate, normal rhythm and normal heart sounds Abdominal Exam Abdominal exam: Present soft and normal bowel sounds; Absent distention, tenderness, guarding or rebound Neurological Exam Neurological exam: Present alert, oriented X3 and normal gait Medical Decision Making Medical Records Screening: Per USPSTF and CDC recommendations, given the prevalence of disease in our region, it is our hospital?s policy to screen for HIV and viral Hepatitis for all patients aged 18 and over and those with ongoing risk factors. Tarun Inquiry Pt receiving controlled substance: No Tarun was queried for this patient: No Vital Signs: 04/09/24 14:10 Temperature 98.1 F Temperature Source Oral Pulse Rate [Left Brachial] 73 Respiratory Rate 19 Blood Pressure [Left Arm] 109/74 L Blood Pressure Mean [Left Arm] 85 Blood Pressure Source [Left Arm] Automatic Cuff Blood Pressure Position [Left Arm] Sitting 02 Sat by Pulse Oximetry 98 Oxygen Delivery Method Room Air
[2024-04-09 14:45] VITALS: BP 109/74; PULSE 73; RESP 19; TEMP 36.7; O2SAT 98
[2024-04-09 14:49] LABS: Coronavirus 19, PCR Not Detected (NotDetected); Influenza A, PCR Not Detected (NotDetected); Influenza B, PCR Not Detected (NotDetected)
== END 2024-04-09 14:46 | disposition home or self-care (01) ==
PROVIDERS: Emergency Provider Nurse Practitioner; PCP Physician Assistant
DX: R11.2 Nausea with vomiting, unspecified (principal); R19.7 Diarrhea, unspecified; M79.10 Myalgia, unspecified site; R68.83 Chills (without fever)
CPT/HCPCS: 87636; 99212; G0381

== ENCOUNTER 2024-05-01 15:12 | Outpatient (CLI) | payer OTHER, SELFPAY ==
[2024-05-01 15:27] LABS: Basophils # 0.1 K/mm3 (0-0.2); Basophils % 0.7 % (0.1-2.0); Eosinophils # 0.5 K/mm3 (0.0-0.4); Eosinophils % 5.6 % (0.1-12.0); Hemoglobin 13.7 g/dL (12.2-16.2); Lymphocytes # 3.5 K/mm3 (0.7-4.5); Lymphocytes % 40.9 % (10-50); Mean Corpuscular HGB Conc 34.3 g/dL (31.8-35.4); Mean Corpuscular Volume 90.5 fl (81-99); Mean Platelet Volume 10.8 fl (7.4-10.4); Monocytes # 0.5 K/mm3 (0.1-1.0); Neutrophils % 46.6 % (37.0-80.0); Platelet Count 255 K/mm3 (142-424); Red Blood Count 4.42 M/mm3 (4.20-5.40); Red Cell Distribution Width 12.2 % (11.5-17.5); White Blood Count 8.5 K/mm3 (4.8-10.8)
[2024-05-01 16:03] LABS: Alanine Aminotransferase 43 U/L (12-78); Albumin Level 4.5 g/dl (3.5-5.0); Albumin/Globulin Ratio 1.6 (1.1-1.8); Alkaline Phosphatase 62 U/L (38-126); Anion Gap 12.8 mEq/L (5-15); Aspartate Amino Transferase 46 U/L (14-36); Bilirubin,Total 0.6 mg/dl (0.2-1.3); Blood Urea Nitrogen 14 mg/dl (7-17); Calcium 9.5 mg/dl (8.4-10.2); Carbon Dioxide 27 mmol/L (22.0-30.0); Chloride 103 mmol/L (98-107); Estimated Glomerular Filt Rate 87 ml/min (>60); GFR (African American) 105 ML/MIN (>60); Globulin 2.8 g/dL (1.3-3.2); Glucose 70 mg/dl (74-100); Potassium 3.8 mmoL/L (3.5-5.1); Sodium 139 mmol/L (136-145); Total Protein,Serum 7.3 g/dl (6.3-8.2)
[2024-05-01 16:33] LABS: Thyroid Stimulating Hormone 1.22 uIU/mL (0.465-4.68)
== END 2024-05-01 23:59 | disposition home or self-care (01) ==
LOC: LAB 15:13
PROVIDERS: PCP Physician Assistant; Visit Provider Obstetrics & Gynecology
DX: N93.9 Abnormal uterine and vaginal bleeding, unspecified (principal)
CPT/HCPCS: 36415; 80053; 84443; 85025

== ENCOUNTER 2024-05-07 09:51 | Outpatient (CLI) | payer OTHER, SELFPAY ==
--- NOTE | 2024-05-07 09:52 | US_ITS ---
PROCEDURE: US TRANSVAGINAL CLINICAL INDICATION: AUB COMPARISON: CT CT ABDOMEN PELVIS W CON from 12/15/2023 US US TRANSVAGINAL from 12/15/2023 FINDINGS: Transvaginal sonographic images of the pelvis were obtained. UTERUS: 7.2cm x 5.4 cmx 3.0cm anteverted with a combined endometrial thickness of 3.9mm. 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 There is fluid in the lower uterine segment and cervix. LEFT OVARY: 2.4cmx1.2cmx1.4cm with a volume of 2.1ml. There are multiple small peripheral follicles. RIGHT OVARY: 3.0cmx 1.9 cmx1.9 cm with a volume of 5.6ml. There is a dominant follicle measuring 1.9 cm x 2.3 cm x 1.4 cm There are multiple small peripheral follicles as well. Both ovaries are seen and appear polycystic. Doppler flow to both ovaries are seen. There is no fluid in the cul-de-sac. IMPRESSION: 1. Anteverted uterus normal in size. The endometrium is thin. The uterus appears bicornuate. 2. There is a small collection of fluid in the lower uterine segment and cervix. 3. Both ovaries are seen and appear polycystic. The right ovary has a dominant follicle measuring 2.3 cm. 4. No fluid in the cul-de-sac. Dictated by: Polo Beauchamp MD 05/07/2024 11:26 Polo Beauchamp MD in OV 05/07/2024 11:26
== END 2024-05-07 23:59 | disposition home or self-care (01) ==
LOC: RAD 09:52
PROVIDERS: PCP Physician Assistant; Visit Provider Obstetrics & Gynecology
DX: N93.9 Abnormal uterine and vaginal bleeding, unspecified (principal)
CPT/HCPCS: 76830

== ENCOUNTER 2024-06-28 10:17 | Outpatient (CLI) | payer OTHER, SELFPAY ==
[2024-06-28 10:36] LABS: Basophils # 0.1 K/mm3 (0-0.2); Basophils % 0.7 % (0.1-2.0); Eosinophils # 0.5 K/mm3 (0.0-0.4); Eosinophils % 7.1 % (0.1-12.0); Hematocrit 41.1 % (37.0-47.0); Hemoglobin 14.3 g/dL (12.2-16.2); Lymphocytes # 2.6 K/mm3 (0.7-4.5); Lymphocytes % 35.8 % (10-50); Mean Corpuscular HGB Conc 34.8 g/dL (31.8-35.4); Mean Corpuscular Hemoglobin 31.2 pg (27.0-31.2); Mean Corpuscular Volume 89.5 fl (81-99); Mean Platelet Volume 11.1 fl (7.4-10.4); Monocytes # 0.4 K/mm3 (0.1-1.0); Monocytes % 5.2 % (1.7-9.3); Neutrophils # 3.8 K/mm3 (1.8-7.8); Neutrophils % 50.9 % (37.0-80.0); Platelet Count 233 K/mm3 (142-424); Red Blood Count 4.59 M/mm3 (4.20-5.40); Red Cell Distribution Width 12.1 % (11.5-17.5); White Blood Count 7.4 K/mm3 (4.8-10.8)
[2024-06-28 10:52] LABS: Chloride 107 mmol/L (98-107)
[2024-06-28 10:53] LABS: Albumin Level 4.6 g/dl (3.5-5.0); Potassium 3.8 mmoL/L (3.5-5.1); Sodium 140 mmol/L (136-145)
[2024-06-28 10:55] LABS: Blood Urea Nitrogen 12 mg/dl (7-17); Estimated Glomerular Filt Rate 101 ml/min (>60); GFR (African American) 122 ML/MIN (>60)
[2024-06-28 10:56] LABS: Alanine Aminotransferase 39 U/L (12-78); Albumin/Globulin Ratio 1.6 (1.1-1.8); Alkaline Phosphatase 69 U/L (38-126); Anion Gap 9.8 mEq/L (5-15); Aspartate Amino Transferase 42 U/L (14-36); Bilirubin,Total 0.6 mg/dl (0.2-1.3); Carbon Dioxide 27 mmol/L (22.0-30.0); Globulin 2.9 g/dL (1.3-3.2); Total Protein,Serum 7.5 g/dl (6.3-8.2)
[2024-06-28 11:16] LABS: Calcium 9.2 mg/dl (8.4-10.2); Glucose 95 mg/dl (74-100)
[2024-06-28 11:27] LABS: HCG,Quantitative < 2 mIU/ml (0-5.42)
== END 2024-06-28 23:59 | disposition home or self-care (01) ==
PROVIDERS: PCP Physician Assistant; Visit Provider Obstetrics & Gynecology
DX: N94.6 Dysmenorrhea, unspecified (principal)
CPT/HCPCS: 80053; 84702; 85025

== ENCOUNTER 2024-07-02 07:48 | Day surgery (SDC) | payer OTHER, SELFPAY ==
[2024-06-28 10:45] VITALS: BMI 36.5
[2024-07-02] VITALS (9 sets, daily range): BP systolic 113–128; BP diastolic 67–89; PULSE 58–77; RESP 14–18; TEMP 36.1–36.6; O2SAT 96–100
[2024-07-02] MEDS: LACTATED RINGERS 1000ML 1,000 ML 25 ML IV (09:04)
--- NOTE | 2024-07-02 09:20 | EXP.ANES.CKL ---
[facility] Disclaimer: The information contained in this section may have been updated after the patient was seen, as this information can be updated by other users. Medical History Abnormal uterine bleeding (AUB) Abnormal thyroid stimulating hormone level Vasovagal syncope Epilepsy Thyromegaly Thyroid Nodule Deviated septum Hyperthyroidism Seizure Surgical History History of tubal ligation History of partial thyroidectomy Status post partial thyroidectomy History of endometrial ablation Family History Grandmother Diabetes Father Coronary artery disease Hypertension Other Thyroid disorder Social History (Updated 07/02/24 @ 08:49 by Nydia Day RN) Smoking Status: Current every day smoker alcohol intake: never substance use type: denies use current occupational status: unemployed Travel in the last 8 weeks: None household members: children housing: apartment Have you lived/traveled outside US in past 30 days?: No Contact w/someone who lives/traveled outside US past 30 days?: No Exposure to someone with infectious disease in past 14 days?: No Do you have a fever (greater than 100.4 F or 38 C)?: No Have you tested positive for COVID-19: No Exposed to someone with COVID-19 in past 14 days?: No Do you have a sore throat?: No Do you have a cough?: No Do you have any weakness?: No Are you experiencing any nausea/vomitting?: No Do you have any diarrhea?: No Are you experiencing any unusual bleeding?: No Do you have any muscle aches/pain?: No Do you have any abdominal pain?: No Are you experiencing loss of taste or smell?: No [facility] Anesthesia Checklist Patient Identification Patient Identification: Arm Band Structural Data Admitted From: Home Planned Operative Procedure/s: Hysteroscopy, D&C, Myosure Ablation Consent for Planned Operative Procedure(s) Verified: Yes Verified Documents: Surgical Consent and History and Physical NPO Status Verified Time NPO: 00:00 Additional verifications Anesthesia Reactions: Yes (NAUSEA) Hx Blood Transfusions: No Blood Transfusion Reaction: No Airway Assessment Mallampati Score:: Class II C-Spine Mobility Assessed: Yes TMJ Mobility Assessed: Yes Dentition: Good Dentition Neurological Assessment Level of Consciousness: Awake, Alert and Appropriate Anesthesia Plan Anesthesia Risk discussed: Yes Anesthesia Plan: Verified ASA Class: II Anesthesia Type: General
[2024-07-02] MEDS: VASOPRESSIN 20 UNITS/ML VIAL 4 UNIT SUBCUT (10:25)
--- NOTE | 2024-07-02 10:53 | EXP.ANES.I ---
[facility] Anesthesia Record Part I Anesthesia Record I Intake, IV Amount: 600 Hydration: Adequate Estimated blood loss (mL): 5 Urine output (mL): 0 Blood Products used (#): none Blood Pressure: 122/89 SaO2: 96 Pulse Rate: 58 Airway Patency: Patent Respiratory Rate: 14 Temperature: 97.6 F Patient is:: Drowsy and Stable
--- NOTE | 2024-07-02 11:38 | P.OP_ITS ---
Date of procedure: 07/02/24 Pre-op Diagnosis:: 1. Normal uterine bleeding 2. Thickened endometrial stripe 3. History of endometrial ablation Post-op Diagnosis:: 1. Normal uterine bleeding 2. Thickened endometrial stripe 3. History of endometrial ablation Procedure performed:: Hysteroscopy Surgeon:: Krys Webb DO DETECTIVE [employer]:: Favian Villagomez Anesthesia: GETA Estimated blood loss (mL): 5 Operative findings:: Findings: -EUA revealed an 8-week anteverted uterus with regular contour. Appropriate vaginal introidus. no significant prolapse or support defects noted. -Hysteroscopy significant intrauterine adhesions. No alarming areas significant for hyperplasia or malignancy Operative note:: The patient was taken back to the OR where general anesthesia was obtained.? She was placed in the dorsal lithotomy position using yellow fin stirrups and sterilely prepped and draped in the usual fashion.? An in and out catheter was used to drain her bladder.? A timeout was performed.? A weighted speculum was used to visualize this cervix, a single-tooth tenaculum was applied to the anterior lip of the cervix. The cervix was only slightly dilated to allow entry to the ectocervix and hydrodisection was used to get the scope the rest of the way into the cavity. Unable to get the scope into the cavity. Dilute vasopressin was injected into the 4 quadrants. Hysteroscope was inserted 1 tubal ostia was visualized but the rest of the uterus was noted to have significant scarring and adhesions. Decision was made not to proceed with a biopsy, benign appearing endometrial cavity. The single-tooth tenaculum was marielena regino and hemostasis was noted at the tenaculum sites.? All instruments were removed from the vagina.? All counts were correct, per nursing.? This concluded the procedure, the patient was awakened from anesthesia, and transferred to the PACU in stable condition. Condition: stable Disposition: PACU Specimens:: none Complications:: None
--- NOTE | 2024-07-02 14:31 | P.PNANES_ITS ---
[facility] Anesthesia Record Part II Anesthesia Record Part II Discharge Time: 11:15 Destination: Surgical Day Care (OP Surgery) PACU nurse assessment reviewed?: Yes Patient Condition:: Good Anesthesia Complications:: None Swallowing reflex intact?: Yes Airway Patency: Patent Cyanosis?: No Blood Pressure: 126/74 SaO2: 100 Respiratory Rate: 16 Pulse Rate: 68 Temperature: 97.6 F Mental Status: Alert & Oriented Pain level:: 2 Nausea and/or vomitting:: None Intake, IV Amount: 0 Hydration: Adequate
== END 2024-07-02 12:04 | disposition home or self-care (01) ==
PROVIDERS: PCP Physician Assistant; Visit Provider Obstetrics & Gynecology
PROC: 0UDB8ZZ Extraction of Endometrium, Via Natural or Artificial Opening Endoscopic (ICD-10-PCS; CPT 58558; principal; 2024-07-02 09:15)
DX: N94.6 Dysmenorrhea, unspecified (principal); R93.89 Abnormal findings on diagnostic imaging of other specified body structures; N85.6 Intrauterine synechiae; N93.9 Abnormal uterine and vaginal bleeding, unspecified
CPT/HCPCS: 58555; J1100; J2250; J2405; J3010; J7120

== ENCOUNTER 2024-07-19 13:49 | Outpatient (CLI) | payer OTHER, SELFPAY ==
--- NOTE | 2024-07-19 13:45 | US_ITS ---
FINAL REPORT CLINICAL HISTORY: monitor thyroid for 1 year visit COMPARISON: 04/28/2023 FINDINGS: THYROID ULTRASOUND: In the interval since the prior thyroid ultrasound of 04/28/2023 the right lobe of the thyroid has been resected. In the left lobe of the thyroid gland, there is a 7 mm TI-RADS category 5 nodule, that was previously 6 mm on the prior exam. This is hypoechoic, with punctate calcifications. There is a smaller nodule in the left thyroid isthmus, measuring up to 5 mm, was previously 4 mm, a TI-RADS category 3 nodule. The isthmus of the thyroid gland measures 4 mm in thickness. IMPRESSION: Interval right thyroid lobectomy since the prior exam of 04/28/2023. Left thyroid nodules as described above, the largest a TI-RADS category 5 nodule measuring 7 mm in size. Recommend continued follow-up thyroid ultrasound in 12 months for further evaluation. Reviewed, Interpreted and Dictated by Kvng Lucas MD Transcribed by Sonali Ly Authenticated and [facility]
== END 2024-07-19 23:59 | disposition home or self-care (01) ==
LOC: RAD 13:49
PROVIDERS: PCP Physician Assistant; Visit Provider Nurse Practitioner
DX: E04.1 Nontoxic single thyroid nodule (principal)
CPT/HCPCS: 76536

== ENCOUNTER 2024-09-13 09:55 | Outpatient (CLI) | payer OTHER, SELFPAY ==
[2024-09-13 10:02] VITALS: BMI 36.8
[2024-09-13 10:24] LABS: Basophils % 0.5 % (0.1-2.0); Eosinophils # 0.3 Kmm3 (0.0-0.4); Eosinophils % 4.2 % (0.1-12.0); Hematocrit 42.2 % (37.0-47.0); Hemoglobin 14.7 g/dL (12.2-16.2); Immature Granulocytes # 0.02 10^3uL; Immature Granulocytes % 0.3 %; Lymphocytes # 2.3 K/mm3 (0.7-4.5); Lymphocytes % 29.6 % (10-50); Mean Corpuscular HGB Conc 34.8 g/dL (31.8-35.4); Mean Corpuscular Hemoglobin 31.5 pg (27.0-31.2); Mean Corpuscular Volume 90.4 fl (81-99); Monocytes # 0.5 K/mm3 (0.1-1.0); Neutrophils # 4.4 K/mm3 (1.8-7.8); Neutrophils % 58.4 % (37.0-80.0); Nucleated Red Blood Cells # 0 10^3/uL; Nucleated Red Blood Cells % 0 %; Platelet Count 234 K/mm3 (142-424); Red Blood Count 4.67 M/mm3 (4.20-5.40); Red Cell Distribution Width-SD 39.1 fL; White Blood Count 7.6 K/mm3 (4.8-10.8)
[2024-09-13 10:27] LABS: Albumin Level 4.7 g/dl (3.5-5.0); Chloride 108 mmol/L (98-107); Potassium 3.8 mmoL/L (3.5-5.1); Sodium 139 mmol/L (136-145)
[2024-09-13 10:30] LABS: Alanine Aminotransferase 24 U/L (12-78); Albumin/Globulin Ratio 1.4 (1.1-1.8); Alkaline Phosphatase 70 U/L (38-126); Anion Gap 10.8 mEq/L (5-15); Aspartate Amino Transferase 26 U/L (14-36); Bilirubin,Total 0.8 mg/dl (0.2-1.3); Blood Urea Nitrogen 10 mg/dl (7-17); Carbon Dioxide 24 mmol/L (22.0-30.0); Creatinine Clearance Estimated 203 mL/min (50-200); Estimated Glomerular Filt Rate 100 ml/min (>60); GFR (African American) 121 ML/MIN (>60); Globulin 3.4 g/dL (1.3-3.2); Total Protein,Serum 8.1 g/dl (6.3-8.2)
[2024-09-13 10:31] LABS: Calcium 9.7 mg/dl (8.4-10.2); Glucose 104 mg/dl (74-100)
[2024-09-13 10:34] LABS: HCG Qualitative, Serum Negative (Negative)
== END 2024-09-13 23:59 | disposition home or self-care (01) ==
LOC: PREOP 09:56
PROVIDERS: PCP Physician Assistant; Visit Provider Obstetrics & Gynecology
DX: Z01.810 Encounter for preprocedural cardiovascular examination (principal); Z01.812 Encounter for preprocedural laboratory examination
CPT/HCPCS: 80053; 84703; 85025

== ENCOUNTER 2024-09-18 06:05 | Day surgery (SDC) | payer OTHER, SELFPAY ==
[2024-09-13 12:30] VITALS: BMI 36.8
[2024-09-18] VITALS (14 sets, daily range): BP systolic 92–136; BP diastolic 47–82; PULSE 67–100; RESP 14–18; TEMP 36.4–36.8; O2SAT 94–100
[2024-09-18] MEDS: CELECOXIB 100MG CAPSULE 400 MG PO (06:17)
[2024-09-18] MEDS: ACETAMINOPHEN 500MG TAB 1000 MG PO (06:18)
[2024-09-18] MEDS: GABAPENTIN 300MG CAPSULE 600 MG (06:18)
[2024-09-18] MEDS: LACTATED RINGERS 1000ML 1,000 ML 25 ML IV (06:21)
--- NOTE | 2024-09-18 06:55 | EXP.ANES.CKL ---
[facility] Disclaimer: The information contained in this section may have been updated after the patient was seen, as this information can be updated by other users. Medical History Thyromegaly Thyroid nodule Abnormal uterine bleeding (AUB) Abnormal thyroid stimulating hormone level Vasovagal syncope Epilepsy Thyromegaly Thyroid Nodule Deviated septum Hyperthyroidism Seizure Surgical History History of cone biopsy of uterine cervix History of tubal ligation History of partial thyroidectomy History of endometrial ablation Family History Grandmother Diabetes Father Coronary artery disease Hypertension Other Thyroid disorder Social History (Updated 09/18/24 @ 06:24 by Nydia Day RN) Smoking Status: Current every day smoker alcohol intake: never substance use type: denies use current occupational status: unemployed Travel in the last 8 weeks?: None household members: children housing: apartment Have you lived/traveled outside US in past 30 days?: No Contact w/someone who lives/traveled outside US past 30 days?: No Exposure to someone with infectious disease in past 14 days?: No Do you have a fever (greater than 100.4 F or 38 C)?: No Have you tested positive for COVID-19?: No Exposed to someone with COVID-19 in past 14 days?: No Do you have a sore throat?: No Do you have a cough?: No Do you have any weakness?: No Are you experiencing any nausea/vomitting?: No Do you have any diarrhea?: No Are you experiencing any unusual bleeding?: No Do you have any muscle aches/pain?: No Do you have any abdominal pain?: No Are you experiencing loss of taste or smell?: No [facility] Anesthesia Checklist Patient Identification Patient Identification: Arm Band and Family Structural Data Admitted From: Home Planned Operative Procedure/s: TVH, Cysto, Poss GENEVA Consent for Planned Operative Procedure(s) Verified: Yes Verified Documents: Surgical Consent and History and Physical NPO Status Verified Time NPO: 00:00 Additional verifications Patient : No Anesthesia Reactions: Yes (nausea) Hx Blood Transfusions: No Blood Transfusion Reaction: No Cephalosporin Allergy: No Previous Colonoscopy: No Airway Assessment Mallampati Score:: Class II C-Spine Mobility Assessed: Yes TMJ Mobility Assessed: Yes Dentition: Partials Neurological Assessment Level of Consciousness: Awake, Alert, Appropriate and Follows Commands Hx Seizures: Yes Numbness or tingling in extremities: No Anesthesia Plan Anesthesia Risk discussed: Yes ASA Class: II Anesthesia Type: General Preoperative Comments Pre-Operative Comments: Smoker History of seizure, Long time ago. Previous Partial thyroidectomy. Dysmenorrhea. Obesity.
--- NOTE | 2024-09-18 07:14 | P.PNANES_ITS ---
[facility] Disclaimer: The information contained in this section may have been updated after the patient was seen, as this information can be updated by other users. Medical History Thyromegaly Thyroid nodule Abnormal uterine bleeding (AUB) Abnormal thyroid stimulating hormone level Vasovagal syncope Epilepsy Thyromegaly Thyroid Nodule Deviated septum Hyperthyroidism Seizure Surgical History History of cone biopsy of uterine cervix History of tubal ligation History of partial thyroidectomy History of endometrial ablation Family History Grandmother Diabetes Father Coronary artery disease Hypertension Other Thyroid disorder Social History (Updated 09/18/24 @ 06:24 by Nydia Day RN) Smoking Status: Current every day smoker alcohol intake: never substance use type: denies use current occupational status: unemployed Travel in the last 8 weeks?: None household members: children housing: apartment Have you lived/traveled outside [place] in past 30 days?: No Contact w/someone who lives/traveled outside [place] past 30 days?: No Exposure to someone with infectious disease in past 14 days?: No Do you have a fever (greater than 100.4 F or 38 C)?: No Have you tested positive for COVID-19?: No Exposed to someone with COVID-19 in past 14 days?: No Do you have a sore throat?: No Do you have a cough?: No Do you have any weakness?: No Are you experiencing any nausea/vomitting?: No Do you have any diarrhea?: No Are you experiencing any unusual bleeding?: No Do you have any muscle aches/pain?: No Do you have any abdominal pain?: No Are you experiencing loss of taste or smell?: No [facility] Anesthesia Checklist Patient Identification Patient Identification: Arm Band Structural Data Admitted From: Home Planned Operative Procedure/s: EGD Consent for Planned Operative Procedure(s) Verified: Yes Verified Documents: Surgical Consent and History and Physical NPO Status Verified Time NPO: 00:00 Additional verifications Anesthesia Reactions: Yes (nausea) Hx Blood Transfusions: No Blood Transfusion Reaction: No Cephalosporin Allergy: No Airway Assessment Mallampati Score:: Class II C-Spine Mobility Assessed: Yes TMJ Mobility Assessed: Yes Dentition: Good Dentition (upper and lower partial removed) Neurological Assessment Level of Consciousness: Awake, Alert and Appropriate Anesthesia Plan Anesthesia Risk discussed: Yes Anesthesia Plan: Verified ASA Class: III Anesthesia Type: MAC
[2024-09-18] MEDS: CEFAZOLIN SODIUM 2 GM in 0.9 % SODIUM CHLORIDE 100 ML IV (07:20)
[2024-09-18] MEDS: METRONIDAZ/SOD CHL 500 MG/100 ML PIGGYBACK 100 MG IV (07:25)
[2024-09-18] MEDS: WATER FOR IRRIGATION,STERILE 3,000 ML 25 ML IR (07:48)
[2024-09-18] MEDS: LIDOCAINE 1% W/EPI 1:100,000 20ML VIAL 20 ML (07:48)
[2024-09-18] MEDS: METHYLENE BLUE 0.5% 10ML AMPULE 50 MG IV (07:48)
--- NOTE | 2024-09-18 09:20 | EXP.ANES.I ---
[facility] Anesthesia Record Part I Anesthesia Record I Intake, IV Amount: 900 Hydration: Adequate Estimated blood loss (mL): 50 Urine output (mL): 30 Blood Products used (#): none Blood Pressure: 136/82 SaO2: 96 Pulse Rate: 89 Airway Patency: Patent Respiratory Rate: 14 Temperature: 98.3 F Patient is:: Drowsy and Stable Stable to PACU at:: 09:15
--- NOTE | 2024-09-18 09:25 | EXP.OP.NOTE ---
Date of procedure: 09/18/24 Pre-op Diagnosis:: 1. Abnormal uterine bleeding 2. Heavy uterine bleeding 3. Dysmenorrhea Post-op Diagnosis:: 1. Abnormal uterine bleeding 2. Heavy uterine bleeding 3. Dysmenorrhea Procedure performed:: 1. Total vaginal hysterectomy 2. Cystoscopy Surgeon:: Krys Webb DO Manager Delivery(s):: Polo Beauchamp MD SENIOR C DEVELOPER:: Favian Villagomez Anesthesia: GETA Estimated blood loss (mL): 50 Clinical Note:: Shelby De Anda is a 29-year-old who has failed medical management as well as conservative surgical management for abnormal bleeding, heavy bleeding, and dysmenorrhea. She requests definitive surgical management with hysterectomy. Operative findings:: Uterine EUA was significant for 8wk size uterus with regular borders at the fundus. Grade 2 uterine descent was appreciated. No gross adnexal masses were appreciated. Operative note:: Pt was taken back to the OR where GETA was obtained without difficulty. SCDs were placed and found to be working. The patient was placed in dorsal lithotomy position using yellowfin stirrups. The vagina was prepped and draped in the normal sterile fashion. An in and out catheter was used to drain the bladder and 20 mL of methylene blue normal saline were inserted into the bladder. A weighted speculum and Gavi were used to visualize the cervix. Two Cervantes tenaculums were used to grasp the anterior and posterior ectocervix on the right and left. Local with epinephrine was used, injected circumferentially around the cervicovaginal junction. The scalpel was used to make a circumferential incision at the cervicovaginal junction. A raytec was used to bluntly dissect the paracervical fascia from the cervix off the vaginal mucosa. Metzenbaum scissors and pickups were used to enter the colpotomy posteriorly and a long weighted speculum was placed. Abdominal entry was confirmed by the presence of the ovary and omentum. The left uterosacral ligament was grasped with a ricardo clamp, cut, and suture ligated with 0-Vicryl. This was tagged for later incorporation to the cuff. This process was repeated on the contralateral side. The anterior vaginal tissue was further dissected off the cervix. Pickups and Metzenbaum scissors were used to make the anterior colpotomy. A Gavi retractor was placed. Entry to the abdominal cavity was confirmed with the presence of omentum and the left ovary was visualized. The Enseal was used to dissect the broad ligament down the lateral aspect of the uterine body on the left side. The cardinal ligaments and uterine vessels were identified bilaterally, grasped with the Enseal, coagulated and transected. This process was repeated on the right. The utero-ovarian ligament was clamped, coagulated and transected on the left. At this time there was only a very small amount of the broad ligament and the round ligament noted to be attached on the right. The Enseal was used to take this down. The uterus was free and removed from the vagina, passed off the operative field and sent to pathology for evaluation. Hemostasis noted. The posterior peritoneum was fixed to the posterior vaginal cuff with a running locking stitch. The anterior peritoneum was grasped with an Consuelo clamp and pursestringed closed. The vaginal cuff was then closed with 0 Vicryl in a running locking fashion. There was a small defect that required closure at the patient right vaginal apex. This was closed/ reapproximated with a figure of 8. Hemostasis was noted. Cystoscopy Cystoscopy was performed with a 70 degree cystoscope and distended with sterile water. Inspection of the bladder showed a normal-looking, blue dyed, smooth bladder mucosa with no evidence of injury, suture, puckering, or other abnormalities.? Both ureteral meatuses were visualized and were noted to be expelling urine in routine fashion.?Air bubble noted at the dome. Cystoscope was removed. Sponge, instrument and needle counts were correct x3, per nursing. The patient was awakened from general anesthesia and transferred to the PACU in stable condition. Condition: stable Disposition: same day Specimens:: Uterine body and cervix Complications:: None
[2024-09-18] MEDS: MORPHINE 2MG/ML SYRINGE 2 MG IV ×3 (09:35→09:50)
[2024-09-18] MEDS: KETOROLAC 30MG/ML VIAL 30 MG IV (10:00)
--- NOTE | 2024-09-18 10:08 | SUR.PHASEI ---
patient up to bathroom trying to void and have bowel movement. 6/10 pain, cramping, no sharp pain verbalized. Patient states cramping pain is tolerable .
--- NOTE | 2024-09-18 11:58 | EXP.ANES.II ---
[facility] Anesthesia Record Part II Anesthesia Record Part II Discharge Time: 10:05 Destination: Surgical Day Care (OP Surgery) PACU nurse assessment reviewed?: Yes Patient Condition:: Good Anesthesia Complications:: None Swallowing reflex intact?: Yes Airway Patency: Patent Cyanosis?: No Blood Pressure: 109/67 SaO2: 99 Respiratory Rate: 16 Pulse Rate: 78 Temperature: 98 F Mental Status: Alert & Oriented Pain level:: 4 Nausea and/or vomitting:: None Intake, IV Amount: 0 Hydration: Adequate
--- NOTE | 2024-09-18 13:06 | SUR.PHASEII ---
1115: Dr. Webb at bedside. Pt returning from BR after voiding 100ml clear yellow urine. Scant vaginal bleeding noted. Will continue with D/C per Dr. Webb.
== END 2024-09-18 11:30 | disposition home or self-care (01) ==
PROVIDERS: PCP Physician Assistant; Visit Provider Obstetrics & Gynecology
PROC: (CPT 58260; principal; 2024-09-18 07:30)
DX: N93.9 Abnormal uterine and vaginal bleeding, unspecified (principal); N92.0 Excessive and frequent menstruation with regular cycle; N94.6 Dysmenorrhea, unspecified; N94.10 Unspecified dyspareunia; R87.810 Cervical high risk human papillomavirus (HPV) DNA test positive; E66.9 Obesity, unspecified; F17.200 Nicotine dependence, unspecified, uncomplicated; Z98.51 Tubal ligation status; Z98.890 Other specified postprocedural states; Z68.36 Body mass index [BMI] 36.0-36.9, adult
CPT/HCPCS: 58260; 86850; 96374; J0690; J1100; J1885; J2250; J2270; J2405; J3010; J7120

== ENCOUNTER 2024-12-02 09:56 | Emergency (ER) | payer OTHER, SELFPAY ==
[2024-12-02] VITALS (7 sets, daily range): BP systolic 123–152; BP diastolic 72–90; PULSE 68–87; RESP 15–17; TEMP 36.6–36.7; O2SAT 96–99; BMI 37.5
--- NOTE | 2024-12-02 10:20 | [facility].EDGENADL ---
Discharge Plan Disposition Patient Disposition: Home, Self-Care Prescriptions Prescriptions: New ondansetron 4 mg tablet,disintegrating 4 mg PO TID PRN (Reason: nausea and vomiting) 5 Days Qty: 15 0RF No Action sulfamethoxazole-trimethoprim [Bactrim DS] 800-160 mg tablet 1 tab PO BID 7 Days Qty: 14 0RF fluconazole 150 mg tablet 150 mg PO Q3D Qty: 2 0RF Rx Instructions: take 1 tab by mouth. may repeat dose in 72 hours if symptoms persist ibuprofen 800 mg tablet 800 mg PO Q8H PRN (Reason: pain) Qty: 60 2RF acetaminophen 500 mg tablet 500 mg PO Q6H PRN (Reason: fever or pain) Qty: 30 3RF Referrals Follow up/Referrals: Destinee Diaz PA [Primary Care Provider, Medical] - See instructions Activity Restrictions/Add. Instructions Additional Instructions/Restrictions: Today you were evaluated in the emergency department, your CT scan and lab work were unremarkable for anything acute. Please keep your follow-up appointment for Monday. Return to the ED for any worsening of condition. Clinical Impressions Clinical Impression: Nausea Stand Alone Forms Stand Alone Forms: Work/School Release Instructions Patient Instructions: DI for Acute Abdominal Pain Print Language Print Language: Hebrew Discharge ED Provider: Les Deal General Adult HPI <Terese Walters APRN - Last Filed: 12/02/24 14:06> General Chief complaint: Abdominal Pain Stated complaint: Cramping, Abd. pain, pressure. Hystrectomy 09/18 Time Seen by Provider: 12/02/24 10:05 Mode of Arrival: Ambulatory Source of Information: Patient Description of Symptoms (Recalled from ER Triage Doc. by RN): Patient presents to ED with c/o pelvic pressure, reports she was having intercourse with her last night when a small piece of plastic came out of her vagina. Patient states she had a hysterectomy 8 wks ago. Denies vaginal bleeding, reports clear discharge. 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 Patient is s/p hysterectomy as of 09/18/2024. She states that she has had no complications since then. Related Data Previous Rx's ?Medication ?Instructions ?Recorded acetaminophen 500 mg tablet 500 mg PO Q6H PRN fever or pain 09/18/24 #30 tabs ibuprofen 800 mg tablet 800 mg PO Q8H PRN pain #60 tabs 09/18/24 sulfamethoxazole 800 1 tab PO BID 7 days #14 tabs 10/24/24 mg-trimethoprim 160 mg tablet (Bactrim DS) fluconazole 150 mg tablet 150 mg PO Q3D 2 doses #2 tabs 10/30/24 ondansetron 4 mg disintegrating 4 mg PO TID PRN nausea and 12/02/24 tablet vomiting 5 days #15 tabs Allergies Allergy/AdvReac Type Severity Reaction Status Date / Time No Known Allergies Allergy Verified 10/24/24 10:52 [facility] <Terese Walters APRN - Last Filed: 12/02/24 14:06> [facility] Disclaimer: The information contained in this section may have been updated after the patient was seen, as this information can be updated by other users. Medical History Thyromegaly Thyroid nodule Abnormal uterine bleeding (AUB) Abnormal thyroid stimulating hormone level Vasovagal syncope Epilepsy Thyromegaly Thyroid Nodule Deviated septum Hyperthyroidism Seizure Surgical History History of total abdominal hysterectomy History of cone biopsy of uterine cervix History of tubal ligation History of partial thyroidectomy History of endometrial ablation Family History Grandmother Diabetes Father Coronary artery disease Hypertension Other Thyroid disorder Social History Smoking Status: Current every day smoker alcohol intake: never substance use type: denies use current occupational status: unemployed Travel in the last 8 weeks?: None household members: children housing: apartment Have you lived/traveled outside [place] in past 30 days?: No Contact w/someone who lives/traveled outside US past 30 days?: No Exposure to someone with infectious disease in past 14 days?: No Do you have a fever (greater than 100.4 F or 38 C)?: No Have you tested positive for COVID-19?: No Exposed to someone with COVID-19 in past 14 days?: No Do you have a sore throat?: No Do you have a cough?: No Do you have any weakness?: No Do you have any diarrhea?: No Are you experiencing any unusual bleeding?: No Do you have any muscle aches/pain?: Yes Do you have any abdominal pain?: Yes Are you experiencing loss of taste or smell?: No Other Medical History Have you received the Flu Vaccine for this season: No Have you received the Pneumonia Vaccine: No <Terese Walters APRN - Last Filed: 12/02/24 14:06> ROS Obtained: Yes Systems reviewed as appropriate & no additional complaints except as documented Physical Exam <Terese Walters APRN - Last Filed: 12/02/24 14:06> General General appearance: alert Head Head exam: atraumatic Neck Neck exam: Present full ROM Respiratory Respiratory exam: Present normal lung sounds bilaterally and respiratory distress Cardiovascular Cardiovascular exam: Present regular rate Abdominal Exam Abdominal exam: Present soft and tenderness (lower abd ); Absent guarding Back Exam Back exam: Present full ROM Neurological Exam Neurological exam: Present alert and oriented X3 Skin Skin exam: Present warm and dry Medical Decision Making <Terese Walters APRN - Last Filed: 12/02/24 14:06> Medical Records Screening: Per USPSTF and CDC recommendations, given the prevalence of disease in our region, it is our hospital?s policy to screen for HIV and viral Hepatitis for all patients aged 18 and over and those with ongoing risk factors. Tarun Inquiry Pt receiving controlled substance: No Vital Signs: 12/02/24 10:05 12/02/24 10:30 12/02/24 11:30 Temperature 98 F Temperature Source Oral Pulse Rate 78 71 Pulse Rate [Left] 87 Respiratory Rate 17 17 Blood Pressure 132/78 Blood Pressure [Right Arm] 146/87 H Blood Pressure Mean [Right Arm] 106 Blood Pressure Source Blood Pressure Source [Right Arm] Automatic Cuff Blood Pressure Position 02 Sat by Pulse Oximetry 99 99 96 Oxygen Delivery Method Room Air Room Air 12/02/24 12:01 12/02/24 12:31 12/02/24 13:00 Temperature Temperature Source Pulse Rate 70 80 72 Pulse Rate [Left] Respiratory Rate Blood Pressure 152/90 H 123/72 128/81 Blood Pressure [Right Arm] Blood Pressure Mean [Right Arm] Blood Pressure Source Blood Pressure Source [Right Arm] Blood Pressure Position 02 Sat by Pulse Oximetry 99 97 96 Oxygen Delivery Method 08/11/25 13:55 Temperature 98.1 F Temperature Source Oral Pulse Rate 68 Pulse Rate [Left] Respiratory Rate 15 Blood Pressure 125/74 Blood Pressure [Right Arm] Blood Pressure Mean [Right Arm] Blood Pressure Source Automatic Cuff Blood Pressure Source [Right Arm] Blood Pressure Position Supine 02 Sat by Pulse Oximetry Oxygen Delivery Method Room Air Lab Data Lab Results 12/02/24 10:40: Urine Color Yellow, Urine Appearance Clear, Urine pH 7.0, Ur Specific [place] 1.015, Urine Protein Negative, Urine Glucose (UA) Negative, Urine Ketones Negative, Urine Blood Negative, Urine Nitrate Negative, Urine Bilirubin Negative, Urine Urobilinogen 0.2, Ur Leukocyte Esterase Negative, Urine RBC None, Urine WBC None, Ur Squamous Epith Cells 10-20, Urine Bacteria None 12/02/24 10:49: WBC 9.0, RBC 4.53, Hgb 14.3, Hct 41.5, MCV 91.6, MCH 31.6 H, MCHC 34.5, RDW 12.4, Plt Count 237, MPV 11.4 H, Neut % (Auto) 56.0, Lymph % (Auto) 31.2, [place] % (Auto) 6.2, Eos % (Auto) 5.4, Baso % (Auto) 0.9, Neut # (Auto) 5.0, Lymph # (Auto) 2.8, [place] # (Auto) 0.6, Eos # (Auto) 0.5 H, Baso # (Auto) 0.1, Sodium 139, Potassium 4.0, Chloride 104, Carbon Dioxide 25, Anion Gap 14.0, BUN 8, Creatinine 0.60, Estimated Creat Clear 242, Estimated GFR 120, Est GFR ( Amer) 145, Glucose 99, Lactate 1.1, Calcium 9.0, Total Bilirubin 0.5, AST 28, ALT 20, Alkaline Phosphatase 86, Total Protein 7.8, Albumin 4.5, Globulin 3.3 H, Albumin/Globulin Ratio 1.4, Lipase 86 12/02/24 10:49 12/02/24 10:49 Orders (Tests/Meds): ED MEDICATIONS Discontinued Medications Generic Name Dose Route Start Last Admin Trade Name Freq PRN Reason Stop Dose Admin Hydromorphone HCl 0.5 mg 12/02/24 12:25 12/02/24 12:32 Hydromorphone 2mg/Ml Syringe IV 12/02/24 12:26 0.5 mg ONCE ONE Administration Iopamidol 75 ml 12/02/24 11:03 12/02/24 11:04 Iopamidol-370 (76%);100ml Bottle IV 12/02/24 11:04 75 ml ONCE ONE Administration Morphine Sulfate 4 mg 12/02/24 10:29 12/02/24 10:48 Morphine 4mg/Ml Syringe IV 12/02/24 10:30 4 mg ONCE ONE Administration Ondansetron HCl 4 mg 12/02/24 10:29 12/02/24 10:48 Ondansetron 4mg/2ml Vial IV 12/02/24 10:30 4 mg ONCE ONE Administration Promethazine HCl 25 mg 12/02/24 12:54 12/02/24 13:22 Promethazine Hcl 25mg/Ml 1ml Vial IV 12/02/24 12:55 25 mg ONCE ONE Administration Sodium Chloride 10 ml 12/02/24 11:03 12/02/24 11:04 Sodium Chloride 0.9% 10ml Syr (Rad Only) IV 01/01/25 11:02 10 ml NEEDED PRN Administration Maintain IV Site Sodium Chloride 25 ml 12/02/24 12:54 12/02/24 13:22 Sodium Chloride 0.9% 25ml Bag IV 12/02/24 12:55 25 ml ONCE ONE Administration ORDERS Category Date Time Status CT abdomen pelvis w con Stat Cat Scan 12/02/24 10:27 Taken CBC w/Auto Diff [Complete Blood Count Auto Diff] Stat Lab 12/02/24 10:49 Completed CMP [Comprehensive Metabolic Panel] Stat Lab 12/02/24 10:49 Completed Lactic Acid Stat Lab 12/02/24 10:49 Completed Lipase Stat Lab 12/02/24 10:49 Completed Urinalysis and Microscopic Stat Lab 12/02/24 10:40 Completed Medical Decision Narrative: In summary, patient is a 29-year-old female PMHx 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 Patient is s/p hysterectomy as of 09/18/2024. She states that she has had no complications since then. Patient advises that she was having sexual intercourse with her last night when he felt he was poked by something , subsequently finding a small, sharp whitish-yellow piece of something (patient brought this to the ED and a small bag). Patient states she is unsure if this was leftover from her hysterectomy, I advised her that this looks like a fingernail. Patient states since the incident, she has had lower abdominal pain, back pain, denies any vaginal bleeding or dysuria. She denies fever, chills, body aches, nausea, vomiting, history of painful intercourse prior to this. Differential diagnosis include postop complications, infectious process, UTI, among others. Upon initial evaluation patient is alert, oriented and cooperative. She is hemodynamically stable. Physical exam remarkable for lower abdominal tenderness and pain. I discussed with patient we will proceed with labs, morphine and Zofran for symptomatic relief. Advised her we will scan abdomen with contrast. Labs reviewed. CBC unremarkable for any leukocytosis, stable H&H. CMP unremarkable for any actionable abnormalities.. Urinalysis unremarkable for any infectious process. CT of the abdomen and pelvis formal read unremarkable for any acute findings. Upon reassessment, patient states her condition has improved. I discussed that her workup today is unremarkable. I advised her that she will need to call her OB office, she states that she already has a follow-up appointment scheduled for Monday. She remains hemodynamically stable. I sent a prescription for Zofran to the pharmacy. Discussed follow-up. Discussed strict return precautions to the ED patient verbalized understanding. <Les Deal MD - Last Filed: 12/02/24 15:15> Vital Signs: 12/02/24 10:05 12/02/24 10:30 12/02/24 11:30 Temperature 98 F Temperature Source Oral Pulse Rate 78 71 Pulse Rate [Left] 87 Respiratory Rate 17 17 Blood Pressure 132/78 Blood Pressure [Right Arm] 146/87 H Blood Pressure Mean [Right Arm] 106 Blood Pressure Source Blood Pressure Source [Right Arm] Automatic Cuff Blood Pressure Position 02 Sat by Pulse Oximetry 99 99 96 Oxygen Delivery Method Room Air Room Air 12/02/24 12:01 12/02/24 12:31 12/02/24 13:00 Temperature Temperature Source Pulse Rate 70 80 72 Pulse Rate [Left] Respiratory Rate Blood Pressure 152/90 H 123/72 128/81 Blood Pressure [Right Arm] Blood Pressure Mean [Right Arm] Blood Pressure Source Blood Pressure Source [Right Arm] Blood Pressure Position 02 Sat by Pulse Oximetry 99 97 96 Oxygen Delivery Method 12/02/24 13:55 Temperature 98.1 F Temperature Source Oral Pulse Rate 68 Pulse Rate [Left] Respiratory Rate 15 Blood Pressure 125/74 Blood Pressure [Right Arm] Blood Pressure Mean [Right Arm] Blood Pressure Source Automatic Cuff Blood Pressure Source [Right Arm] Blood Pressure Position Supine 02 Sat by Pulse Oximetry Oxygen Delivery Method Room Air Lab Data Lab Results 12/02/24 10:40: Urine Color Yellow, Urine Appearance Clear, Urine pH 7.0, Ur Specific [place] 1.015, Urine Protein Negative, Urine Glucose (UA) Negative, Urine Ketones Negative, Urine Blood Negative, Urine Nitrate Negative, Urine Bilirubin Negative, Urine Urobilinogen 0.2, Ur Leukocyte Esterase Negative, Urine RBC None, Urine WBC None, Ur Squamous Epith Cells 10-20, Urine Bacteria None 12/02/24 10:49: WBC 9.0, RBC 4.53, Hgb 14.3, Hct 41.5, MCV 91.6, MCH 31.6 H, MCHC 34.5, RDW 12.4, Plt Count 237, MPV 11.4 H, Neut % (Auto) 56.0, Lymph % (Auto) 31.2, [place] % (Auto) 6.2, Eos % (Auto) 5.4, Baso % (Auto) 0.9, Neut # (Auto) 5.0, Lymph # (Auto) 2.8, [place] # (Auto) 0.6, Eos # (Auto) 0.5 H, Baso # (Auto) 0.1, Sodium 139, Potassium 4.0, Chloride 104, Carbon Dioxide 25, Anion Gap 14.0, BUN 8, Creatinine 0.60, Estimated Creat Clear 242, Estimated GFR 120, Est GFR ( Amer) 145, Glucose 99, Lactate 1.1, Calcium 9.0, Total Bilirubin 0.5, AST 28, ALT 20, Alkaline Phosphatase 86, Total Protein 7.8, Albumin 4.5, Globulin 3.3 H, Albumin/Globulin Ratio 1.4, Lipase 86 Orders (Tests/Meds): ED MEDICATIONS Discontinued Medications Generic Name Dose Route Start Last Admin Trade Name Freq PRN Reason Stop Dose Admin Hydromorphone HCl 0.5 mg 12/02/24 12:25 12/02/24 12:32 Hydromorphone 2mg/Ml Syringe IV 12/02/24 12:26 0.5 mg ONCE ONE Administration Iopamidol 75 ml 12/02/24 11:03 12/02/24 11:04 Iopamidol-370 (76%);100ml Bottle IV 12/02/24 11:04 75 ml ONCE ONE Administration Morphine Sulfate 4 mg 12/02/24 10:29 12/02/24 10:48 Morphine 4mg/Ml Syringe IV 12/02/24 10:30 4 mg ONCE ONE Administration Ondansetron HCl 4 mg 12/02/24 10:29 12/02/24 10:48 Ondansetron 4mg/2ml Vial IV 12/02/24 10:30 4 mg ONCE ONE Administration Promethazine HCl 25 mg 12/02/24 12:54 12/02/24 13:22 Promethazine Hcl 25mg/Ml 1ml Vial IV 12/02/24 12:55 25 mg ONCE ONE Administration Sodium Chloride 10 ml 12/02/24 11:03 12/02/24 11:04 Sodium Chloride 0.9% 10ml Syr (Rad Only) IV 01/01/25 11:02 10 ml NEEDED PRN Administration Maintain IV Site Sodium Chloride 25 ml 12/02/24 12:54 12/02/24 13:22 Sodium Chloride 0.9% 25ml Bag IV 12/02/24 12:55 25 ml ONCE ONE Administration ORDERS Category Date Time Status CT abdomen pelvis w con Stat Cat Scan 12/02/24 10:27 Taken CBC w/Auto Diff [Complete Blood Count Auto Diff] Stat Lab 12/02/24 10:49 Completed CMP [Comprehensive Metabolic Panel] Stat Lab 12/02/24 10:49 Completed Lactic Acid Stat Lab 12/02/24 10:49 Completed Lipase Stat Lab 12/02/24 10:49 Completed Urinalysis and Microscopic Stat Lab 12/02/24 10:40 Completed Medical Decision Narrative: In summary, patient is a 29-year-old female PMHx 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 Patient is s/p hysterectomy as of 09/18/2024. She states that she has had no complications since then. Patient advises that she was having sexual intercourse with her last night when he felt he was poked by something , subsequently finding a small, sharp whitish-yellow piece of something (patient brought this to the ED and a small bag). Patient states she is unsure if this was leftover from her hysterectomy, I advised her that this looks like a fingernail. Patient states since the incident, she has had lower abdominal pain, back pain, denies any vaginal bleeding or dysuria. She denies fever, chills, body aches, nausea, vomiting, history of painful intercourse prior to this. Differential diagnosis include postop complications, infectious process, UTI, among others. Upon initial evaluation patient is alert, oriented and cooperative. She is hemodynamically stable. Physical exam remarkable for lower abdominal tenderness and pain. I discussed with patient we will proceed with labs, morphine and Zofran for symptomatic relief. Advised her we will scan abdomen with contrast. Labs reviewed. CBC unremarkable for any leukocytosis, stable H&H. CMP unremarkable for any actionable abnormalities.. Urinalysis unremarkable for any infectious process. CT of the abdomen and pelvis formal read unremarkable for any acute findings. Upon reassessment, patient states her condition has improved. I discussed that her workup today is unremarkable. I advised her that she will need to call her OB office, she states that she already has a follow-up appointment scheduled for Monday. She remains hemodynamically stable. I sent a prescription for Zofran to the pharmacy. Discussed follow-up. Discussed strict return precautions to the ED patient verbalized understanding. I was consulted by the KAVITA, and we discussed the complexity of the problems being addressed. I approve the treatment and management plan for this patient's care in the emergency department, thus performing a substantive portion of the medical decision making. Les Deal MD Critical Care <Terese Walters APRN - Last Filed: 12/02/24 14:06> Critical Care Time Critical Care Time: No
--- NOTE | 2024-12-02 10:27 | CT_ITS ---
FINAL REPORT TECHNIQUE: After the administration of intravenous contrast, axial images were obtained through the abdomen and pelvis by computed tomography. This study was performed with technique to keep radiation doses as low as reasonably achievable, (ALARA). Individualized dose reduction techniques using automated exposure control or adjustment of the MA and/or KV according to the patient's size were employed. CLINICAL HISTORY: lower abd pain s/p hyst. 09/18/24 COMPARISON: 09/18/2024 FINDINGS: Abdomen: The lung bases are clear. The liver is normal in size and attenuation. The spleen and bladder are unremarkable. The adrenals are normal. The pancreas is unremarkable. The kidneys enhance appropriately. The aorta is normal in caliber. There is no free fluid or adenopathy. Bowel is normal. Pelvis: The appendix is not identified. There has been interval hysterectomy. The urinary bladder is unremarkable. There is no free fluid, mass or adenopathy. IMPRESSION: No acute intra-abdominal process. Reviewed, Interpreted and Dictated by Kvng Lucas MD Transcribed by Lakshmi Richards Authenticated and [facility]
[2024-12-02] MEDS: ONDANSETRON 4MG/2ML VIAL 4 MG IV (10:48)
[2024-12-02] MEDS: MORPHINE 4MG/ML SYRINGE 4 MG IV (10:48)
[2024-12-02 10:50] LABS: Microscopic, Urine URINE MICROSCOPIC (MICROSCOPIC)
[2024-12-02 10:55] LABS: Bilirubin,Urine Negative (Negative); Color,Urine YELLOW (Yellow); Glucose,Urine (UA) Negative (Negative); Ketones,Urine Negative (Negative); Leukocyte Esterase,Urine Negative (Negative); PH,Urine 7.0 (5.0-8.5); Protein,Urine Negative (Negative); Specific Gravity, Urine 1.015 (1.005-1.030); Urobilinogen,Urine 0.2 EU/dl (0.2)
[2024-12-02 11:00] LABS: Hematocrit 41.5 % (37.0-47.0); Hemoglobin 14.3 g/dL (12.2-16.2); Immature Granulocytes % 0.3 %; Mean Corpuscular HGB Conc 34.5 g/dL (31.8-35.4); Mean Corpuscular Hemoglobin 31.6 pg (27.0-31.2); Mean Corpuscular Volume 91.6 fl (81-99); Nucleated Red Blood Cells % 0 %; Platelet Count 237 K/mm3 (142-424); Red Blood Count 4.53 M/mm3 (4.20-5.40); Red Cell Distribution Width-SD 41.6 fL; White Blood Count 9.0 K/mm3 (4.8-10.8)
[2024-12-02] MEDS: SODIUM CHLORIDE 0.9% 10ML SYR (RAD ONLY) 10 ML IV (11:04)
[2024-12-02] MEDS: IOPAMIDOL-370 (76%);100ML BOTTLE 75 ML IV (11:04)
[2024-12-02 11:11] LABS: Albumin Level 4.5 g/dl (3.5-5.0); Chloride 104 mmol/L (98-107); Sodium 139 mmol/L (136-145)
[2024-12-02 11:12] LABS: Potassium 4.0 mmoL/L (3.5-5.1)
[2024-12-02 11:14] LABS: Alanine Aminotransferase 20 U/L (12-78); Albumin/Globulin Ratio 1.4 (1.1-1.8); Alkaline Phosphatase 86 U/L (38-126); Anion Gap 14.0 mEq/L (5-15); Aspartate Amino Transferase 28 U/L (14-36); Bilirubin,Total 0.5 mg/dl (0.2-1.3); Blood Urea Nitrogen 8 mg/dl (7-17); Carbon Dioxide 25 mmol/L (22.0-30.0); Creatinine Clearance Estimated 242 mL/min (50-200); Creatinine,Serum 0.60 mg/dl (0.52-1.04); Estimated Glomerular Filt Rate 120 ml/min (>60); GFR (African American) 145 ML/MIN (>60); Globulin 3.3 g/dL (1.3-3.2); Total Protein,Serum 7.8 g/dl (6.3-8.2)
[2024-12-02 11:15] LABS: Calcium 9.0 mg/dl (8.4-10.2); Glucose 99 mg/dl (74-100)
[2024-12-02 12:14] LABS: Lipase 86 U/L (23-300)
[2024-12-02] MEDS: HYDROMORPHONE 2MG/ML SYRINGE 0.5 MG IV (12:32)
--- NOTE | 2024-12-02 13:10 | PC.NURSE ---
I spoke with Charla in [place] regarding the pts CT results. She states it is showing for them but not crossing over to [facility]. She is going to bring us the printed report.
[2024-12-02] MEDS: PROMETHAZINE HCL 25MG/ML 1ML VIAL 25 MG IV (13:22)
[2024-12-02] MEDS: SODIUM CHLORIDE 0.9% 25ML BAG 25 ML IV (13:22)
== END 2024-12-02 13:56 | disposition home or self-care (01) ==
PROVIDERS: Nurse Practitioner; Emergency Provider Student in an Organized Health Care Education/Training Program; PCP Physician Assistant
DX: R10.30 Lower abdominal pain, unspecified (principal); R11.0 Nausea; F17.210 Nicotine dependence, cigarettes, uncomplicated
CPT/HCPCS: 74177; 80053; 81001; 83605; 83690; 85025; 96374; 96375; 99285; J1171; J2270; J2405; J2550; Q9967

== ENCOUNTER 2025-01-09 14:29 | Outpatient (CLI) | payer OTHER, SELFPAY ==
[2025-01-09 19:53] LABS: Hematocrit 41.4 % (37.0-47.0); Hemoglobin 13.9 g/dL (12.2-16.2); Immature Granulocytes % 0.3 %; Mean Corpuscular HGB Conc 33.6 g/dL (31.8-35.4); Mean Corpuscular Hemoglobin 30.9 pg (27.0-31.2); Mean Corpuscular Volume 92.0 fl (81-99); Nucleated Red Blood Cells % 0 %; Platelet Count 249 K/mm3 (142-424); Red Blood Count 4.50 M/mm3 (4.20-5.40); Red Cell Distribution Width-SD 40.8 fL; White Blood Count 9.8 K/mm3 (4.8-10.8)
[2025-01-09 20:50] LABS: Albumin Level 4.5 g/dl (3.5-5.0); Chloride 102 mmol/L (98-107); Sodium 138 mmol/L (136-145)
[2025-01-09 20:51] LABS: Potassium 4.2 mmoL/L (3.5-5.1)
[2025-01-09 20:53] LABS: Alanine Aminotransferase 20 U/L (12-78); Anion Gap 14.2 mEq/L (5-15); Aspartate Amino Transferase 28 U/L (14-36); Bilirubin,Total 0.5 mg/dl (0.2-1.3); Blood Urea Nitrogen 15 mg/dl (7-17); Carbon Dioxide 26 mmol/L (22.0-30.0); Creatinine,Serum 0.90 mg/dl (0.52-1.04); Estimated Glomerular Filt Rate 75 ml/min (>60); GFR (African American) 91 ML/MIN (>60)
[2025-01-09 20:54] LABS: Albumin/Globulin Ratio 1.5 (1.1-1.8); Alkaline Phosphatase 65 U/L (38-126); Calcium 9.6 mg/dl (8.4-10.2); Globulin 3.0 g/dL (1.3-3.2); Glucose 93 mg/dl (74-100); Total Protein,Serum 7.5 g/dl (6.3-8.2)
[2025-01-09 21:05] LABS: Triiodothryronine (T3) Uptake 32 % (23.5-40.5)
[2025-01-09 21:07] LABS: Free Thyroxine Index 2.3 ug/dL (5.93-13.13); T4 (Thyroxine) 7.2 ug/dl (5.53-11.0)
[2025-01-09 21:20] LABS: Thyroid Stimulating Hormone 0.43 uIU/mL (0.465-4.68)
== END 2025-01-09 23:59 | disposition home or self-care (01) ==
LOC: LAB.DROPOF 01-10 13:28
PROVIDERS: PCP Family Medicine; Visit Provider Family Medicine
DX: E05.90 Thyrotoxicosis, unspecified without thyrotoxic crisis or storm (principal); R55 Syncope and collapse
CPT/HCPCS: 80053; 84436; 84443; 84479; 85025